=== PATIENT | male | born 1970 | race Caucasian/White ===

== ENCOUNTER 2020-05-28 10:27 | Outpatient (REF) | payer OTHER, SELFPAY ==
[2020-05-28 12:05] LABS: TSH reflex Free T4 0.92 uIU/mL (0.32-4.0)
[2020-05-28 12:07] LABS: Alanine Aminotransferase 56 U/L (0-40); Albumin Level 4.9 g/dL (3.5-5.0); Alkaline Phosphatase 75 U/L (39-117); Anion Gap 12 (12-20); Aspartate Amino Transferase 27 U/L (5-37); Bilirubin Total 0.8 mg/dL (0.0-1.0); Blood Urea Nitrogen 16 mg/dL (9-16); Calcium 9.1 mg/dL (8.4-10.2); Carbon Dioxide 25 mmol/L (22-29); Chloride 106 mmol/L (96-108); Cholesterol 148 mg/dL; Estimated Glomerular Filt Rate > 60; Glucose Fasting 112 mg/dL (60-99); HDL Cholesterol 35 mg/dL; LDL Cholesterol Calculated 86 mg/dl; Sodium 139 mmol/L (135-145); Total Protein 7.5 g/dL (6.5-8.0); Triglycerides 138 mg/dL
== END 2020-05-28 10:28 | disposition home or self-care (01) ==
LOC: HO.HMGCLDS 10:27
PROVIDERS: PCP Nurse Practitioner Family; Visit Provider Nurse Practitioner Family
DX: Z00.00 Encounter for general adult medical examination without abnormal findings (principal)
CPT/HCPCS: 36415; 80053; 80061; 84443

== ENCOUNTER 2020-05-31 12:14 | Outpatient (REF) | payer OTHER, SELFPAY ==
[2020-06-02 14:27] LABS: HCV Log PCR <1.18 NOT DETECTED Log IU/mL (NOT DETECTED); HepC Viral Load <15 NOT DETECTED IU/mL (NOT DETECTED)
[2020-06-03 03:49] LABS: Hepatitis B Core Antibody Nonreactive (Nonreactive); ~HepC Num1 14.45 S/CO (0.00-0.79); ~Hepatitis C Antibody Reactive (Nonreactive)
[2020-06-03 03:53] LABS: HBS Num1 1.46 mIU/mL (0-7.99); HBsAGNum1 0.61 S/CO (0.00-0.99); Hepatitis B Surface Antigen Negative (Negative); ~Hepatitis B Surface Antibody NONREACTIVE (Nonreactive)
[2020-06-05 08:19] LABS: Hepatitis A Antibody IgM 0.13 Index (0-0.79); ~Hepatitis A Antibody IgM Nonreactive (Nonreactive)
== END 2020-05-31 12:15 | disposition home or self-care (01) ==
LOC: HO.HMGCLDS 12:14
PROVIDERS: PCP Nurse Practitioner Family; Visit Provider Nurse Practitioner Family
DX: R74.8 Abnormal levels of other serum enzymes (principal)
CPT/HCPCS: 36415; 86704; 86706; 86709; 86803; 87340; 87522

== ENCOUNTER 2020-06-12 09:57 | Outpatient (REF) | payer OTHER, SELFPAY ==
--- NOTE | ~2020-06-12 | US_ITS ---
EXAMINATION: US ABDOMEN COMPLETE CLINICAL INFORMATION: Elevated LFT's. COMPARISON: Ultrasound abdomen 01/02/2014. TECHNIQUE: Real-time imaging of the abdominal viscera. FINDINGS: PANCREAS: Normal. ABDOMINAL AORTA: Difficult to penetrate INFERIOR VENA CAVA: Visualized portions are normal. LIVER: Liver is normal size, contour with diffuse increase echogenicity. There are areas of focal fatty sparing. No focal hepatic lesion. There is no intrahepatic biliary duct dilatation seen. GALLBLADDER: The gallbladder wall thickness measures 0.19 cm. The gallbladder is physiologically distended without evidence of stones, sludge, polyps, wall thickening or pericholecystic fluid. COMMON BILE DUCT: Normal in caliber measuring 0.34 cm in diameter. RIGHT KIDNEY: The right kidney is normal size, shape and echogenicity. No hydronephrosis. No renal calculi or focal parenchymal lesions. The kidney measures 12.1 cm in maximum dimension. LEFT KIDNEY: There is anechoic cyst upper pole measuring 3.8 3.5 x 3.4 cm. No hydronephrosis or renal calculi. The kidney measures 12.1 cm in maximum dimension. SPLEEN: Normal. The spleen measures 11.3 cm in maximum dimension. FREE FLUID: None. US/US abdomen complete IMPRESSION: There is increased hepatic echogenicity with focal fatty sparing. It is difficult to penetrate. There is anechoic cyst upper pole measuring 3.8 x 3.5 x 3.4 cm.
== END 2020-06-12 09:58 | disposition home or self-care (01) ==
LOC: HO.US 09:57
PROVIDERS: Visit Provider Nurse Practitioner Family
DX: R74.8 Abnormal levels of other serum enzymes (principal)
CPT/HCPCS: 76700

== ENCOUNTER → 2020-10-04 13:54 | Outpatient (BNVA) | payer OTHER, SELFPAY | PROVIDERS: PCP Nurse Practitioner Family; Visit Provider Urology | DX: N28.1 Cyst of kidney, acquired (principal) | CPT/HCPCS: 99202 ==

== ENCOUNTER 2021-05-29 10:01 | Outpatient (REF) | payer OTHER, SELFPAY ==
[2021-05-29 11:56] LABS: Alanine Aminotransferase 56 U/L (0-40); Albumin Level 4.6 g/dL (3.5-5.0); Alkaline Phosphatase 63 U/L (39-117); Anion Gap 11 (12-20); Aspartate Amino Transferase 32 U/L (5-37); Bilirubin Total 0.9 mg/dL (0.0-1.0); Blood Urea Nitrogen 12 mg/dL (9-16); Calcium 9.5 mg/dL (8.4-10.2); Carbon Dioxide 26 mmol/L (22-29); Chloride 105 mmol/L (96-108); Cholesterol 163 mg/dL; Estimated Glomerular Filt Rate > 60; Glucose Fasting 95 mg/dL (60-99); HDL Cholesterol 33 mg/dL; LDL Cholesterol Calculated 95 mg/dl; Potassium 4.2 mmol/L (3.3-5.1); Sodium 138 mmol/L (135-145); Total Protein 7.2 g/dL (6.5-8.0); Triglycerides 176 mg/dL
[2021-05-29 11:58] LABS: Appearance Urine CLEAR; Color Urine YELLOW; Glucose Urine UA NEG (NEG); Leukocyte Esterase Urine NEG (NEG); Nitrite Urine NEG (NEG); PH 7.5 (5.0-8.0); Specific Gravity - Urine 1.015 (1.005-1.025); Urine Blood NEG (NEG); Urine Ketones NEG (NEG); Urine Protein NEG (NEG-TRACE)
[2021-05-29 12:16] LABS: Prostate Specific Antigen Scr 0.26 ng/mL (<0.05-4.0); TSH reflex Free T4 0.87 uIU/mL (0.32-4.0)
== END 2021-05-29 10:02 | disposition home or self-care (01) ==
LOC: HO.HMGCLDS 10:01
PROVIDERS: PCP Nurse Practitioner Family; Visit Provider Nurse Practitioner Family
DX: Z00.00 Encounter for general adult medical examination without abnormal findings (principal); Z12.5 Encounter for screening for malignant neoplasm of prostate
CPT/HCPCS: 36415; 80053; 80061; 81003; 84153; 84443

== ENCOUNTER → 2021-08-05 11:46 | Outpatient (BNVA) | payer OTHER, SELFPAY | PROVIDERS: PCP Nurse Practitioner Family; Referring Provider Nurse Practitioner Family; Visit Provider Nurse Practitioner Family | DX: Z01.818 Encounter for other preprocedural examination (principal) | CPT/HCPCS: 99202 ==

== ENCOUNTER 2021-08-06 12:32 | Outpatient (REF) | payer OTHER, SELFPAY ==
--- NOTE | ~2021-08-06 | US_ITS ---
EXAMINATION: US THYROID CLINICAL INFORMATION: Nontoxic single thyroid nodule. COMPARISON: US thyroid 08/09/2017 and 05/21/2015. CT soft tissue neck with contrast 12/24/2015. TECHNIQUE: Linear transducer grayscale and color Doppler examination with attention to the region of the thyroid. FINDINGS: SIZE: Measurements of the thyroid lobes and nodules are given in sagittal, anteroposterior and transverse dimensions respectively. Right Thyroid Lobe: 4.4 x 1.6 x 2.0 cm, volume 7.8 mL. Previously 4.2 x 1.8 x 2.2 cm, volume 8.7 mL. Parenchyma: The gland echotexture is homogeneous. Thyroid vascularity is normal. Left Thyroid Lobe: 3.7 x 1.0 x 1.7 cm, volume 3.1 mL. Previously 4.0 x 1.4 x 1.7 cm, volume 5.0 mL. Parenchyma: The gland echotexture is homogeneous. Thyroid vascularity is normal. Isthmus: 0.3 cm in maximum AP dimension. Previously 0.3 cm. Estimated total number of nodules greater than or equal to 1 cm: 0. 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 Location: Left inferior. Size: 0.6 x 0.5 x 0.3 cm, volume 0.1 mL. Previously: 0.4 x 0.2 x 0.4 cm, volume 0.02 mL. Nodule characteristics: Composition: Mixed cystic and solid (1). Echogenicity: Hypoechoic (2). Shape: Not taller than wide (0). Margins: Smooth (0). Echogenic Foci: None (0). ACR TI-RADS total points: 3. ACR TI-RADS category: 3. Significant change in size (>/= 20% in 2 dimensions and minimal increase of 2 mm or 50% or greater increase in volume): None. Change in features: None. Change in ACR TI-RADS risk category: Not applicable. NODES: No lymphadenopathy is seen in the tissue surrounding the thyroid gland. US/US thyroid IMPRESSION: Enlarged thyroid gland with no major change in size. Solitary lower pole left thyroid nodule, stable. ACR TI-RADS RECOMMENDATION REFERENCE: Ultrasound-guided fine-needle aspiration, followup ultrasound, no further follow up. * TR1 (0 point) and TR 2 (2 points): No FNA or follow up * TR3 (3 points): FNA if more than or equal to 2.5 cm in maximum dimension, followup ultrasound in 1, 3 and 5 years if 1.5 to 2.4 cm in maximum dimension. * TR4 (4-6 points): FNA if more than or equal to 1.5 cm in maximum dimension, followup ultrasound in 1, 2, 3 and 5 years if 1 to 1.4 cm in maximum dimension. * TR5 (more than or equal to 7 points): FNA if more than or equal to 1 cm in maximum dimension, followup ultrasound every year for 5 years if 0.5 to 0.9 cm in maximum dimension. * TR3, TR4 or TR5 nodules that are below the size threshold for follow up receive no follow up.
== END 2021-08-06 12:33 | disposition home or self-care (01) ==
LOC: HO.US 12:32
PROVIDERS: Visit Provider Nurse Practitioner Family
DX: E04.1 Nontoxic single thyroid nodule (principal)
CPT/HCPCS: 76536

== ENCOUNTER 2021-11-17 15:50 | Outpatient (REF) | payer OTHER, SELFPAY ==
--- NOTE | ~2021-11-17 | US_ITS ---
EXAMINATION: US RETROPERITONEAL LIMITED (RENAL ONLY) CLINICAL INFORMATION: Cyst of kidney, acquired. COMPARISON: Ultrasound abdomen complete 06/12/2020 and 01/02/2014. TECHNIQUE: Real-time imaging of the kidneys. FINDINGS: RIGHT KIDNEY: 11.5 x 6.2 x 6.3 cm (SAG x AP x TRV). The kidney is normal in size, contour, and echogenicity. Renal cortical thickness is normal. No renal calculi or hydronephrosis. There is sn anechoic cyst in midpole laterally measuring 0.6 x 0.5 x 0.6 cm. It was visualized in 2013. LEFT KIDNEY: 12.7 x 6.4 x 5.8 cm (SAG x AP x TRV). The kidney is normal in size, contour, and echogenicity. Renal cortical thickness is normal. No hydronephrosis. There is sn anechoic cyst in the upper pole with septation measuring 4.2 x 4.0 x 4.4 cm. There is an echogenic stone lower pole without caliectasis measuring 0.3 x 0.2 x 0.3 cm. US/US renal BI IMPRESSION: Simple cyst right kidney and a complex cyst left kidney. Nonobstructive echogenic stone lower pole left kidney.
== END 2021-11-17 15:51 | disposition home or self-care (01) ==
LOC: HO.US 15:50
PROVIDERS: Absent Provider Urology; PCP Nurse Practitioner Family; Visit Provider Urology
DX: N28.1 Cyst of kidney, acquired (principal)
CPT/HCPCS: 76775

== ENCOUNTER 2021-11-27 09:42 | Outpatient (REF) | payer OTHER, SELFPAY ==
[2021-11-27 10:57] LABS: MANUAL DIFF FLAG NO
[2021-11-27 10:58] LABS: Appearance Urine Clear; Color Urine Yellow; Glucose Urine UA Negative (Negative); Leukocyte Esterase Urine Negative (Negative); Nitrite Urine Negative (Negative); Urine Blood Negative (Negative); Urine Ketones Negative (Negative); Urine Protein Negative (Neg-Trace)
[2021-11-27 11:15] LABS: Basophils Percent Auto 0.5 % (0-2); Eosinophils Absolute Auto 0.2 X10*3/uL (0.0-0.4); Hematocrit 44.6 % (42.0-52.0); Hemoglobin 14.7 g/dl (14.0-18.0); Imm Gran Abs Auto 0.03 X10*3/uL (0.00-0.03); Imm Gran Pct Auto 0.4 % (0.0-0.4); Lymphocytes Absolute Auto 2.2 X10*3/uL (1.2-4.9); Lymphocytes Percent Auto 26.7 % (20-40); Mean Corpuscular Hemoglobin 27.6 pg (27.0-33.0); Mean Corpuscular Volume 83.8 fL (80.0-98.0); Mean Platelet Volume 9.5 fL (9.4-12.4); Monocytes Absolute Auto 0.4 X10*3/uL (0.1-1.2); Monocytes Percent Auto 5.3 % (2-11); Neutrophils Absolute Auto 5.3 x10*3/uL (2.0-8.3); Neutrophils Percent Auto 65.1 % (45-73); Platelet Count 241 X10*3/uL (160-400); Red Blood Count 5.32 X10*6/uL (4.60-5.80); Red Cell Distribution Width 12.7 % (11.0-16.0); White Blood Count 8.1 X10*3/uL (4.8-10.8)
[2021-11-27 11:41] LABS: Alanine Aminotransferase 32 U/L (0-40); Albumin Level 4.6 g/dL (3.5-5.0); Alkaline Phosphatase 60 U/L (39-117); Anion Gap 14 (12-20); Aspartate Amino Transferase 23 U/L (5-37); Bilirubin Total 0.5 mg/dL (0.0-1.0); Blood Urea Nitrogen 11 mg/dL (9-16); Calcium 9.3 mg/dL (8.4-10.2); Carbon Dioxide 26 mmol/L (22-29); Chloride 104 mmol/L (96-108); Cholesterol 147 mg/dL; Estimated Glomerular Filt Rate > 60; Glucose Fasting 97 mg/dL (60-99); HDL Cholesterol 37 mg/dL; LDL Cholesterol Calculated 85 mg/dl; Potassium 4.4 mmol/L (3.3-5.1); Sodium 140 mmol/L (135-145); Triglycerides 128 mg/dL
[2021-11-27 12:04] LABS: TSH reflex Free T4 0.75 uIU/mL (0.32-4.0)
== END 2021-11-27 09:43 | disposition home or self-care (01) ==
LOC: HO.HMGCLDS 09:42
PROVIDERS: PCP Nurse Practitioner Family; Visit Provider Nurse Practitioner Family
DX: E78.5 Hyperlipidemia, unspecified (principal)
CPT/HCPCS: 36415; 80053; 80061; 81003; 84443; 85025

== ENCOUNTER 2021-12-09 08:56 | Day surgery (SDC) | payer OTHER, SELFPAY ==
[2021-12-03 14:03] VITALS: BMI 27.9
--- NOTE | 2021-12-08 10:39 | HO.ANESPROP2 ---
Documented by User: Keren Jeff NP 12/08/21 10:40 HPI - Anesthesia Eval Consult details Narrative: 51yo M for Colonoscopy PMFSH Active Problems Active Problems: All Active Problems (Updated 12/03/21 @ 14:05 by Yoana Mccabe RN) Physical exam (Acute) Elevated liver enzymes (Acute) Cyst of left kidney (Acute) Screening PSA (prostate specific antigen) (Acute) Thyroid nodule (Acute) Screening for colon cancer (Acute) Fatty liver (Acute) Back pain (Acute) Dyslipidemia (Acute) Past Medical History Medical History Anxiety Dyslipidemia Elevated cholesterol GERD (gastroesophageal reflux disease) Hepatitis C History of COVID-19 Left inguinal hernia Orchalgia Prediabetes Psoriasis Renal cyst Family History Family History Father Hypertension Substance use disorder Mother Diabetes Mental health disorder Brother Substance use disorder Sister Mental health disorder Surgical History Surgical History History of hydrocelectomy History of liver biopsy Hx of left inguinal hernia repair Social History Social History Housing: Apartment Alcohol intake: current Alcohol intake frequency: a few times a month Patient Tobacco Use Status: Former Tobacco user Quit Date: 2013 Tobacco use type: Cigarette e-Cigarette/Vaping Use: Never Used Second Hand Smoke Exposure: No Use of substances other than those prescribed or required for medical reasons: Yes Substance Use Type Other:: medical marijuana card Have you been hit, kicked, punched, or otherwise hurt by someone within the past year? If so, by whom?: No Are you DNR?: No Advance Directives: No (states would be his sister) Advance Directives Information Provided: Yes (brochure mailed) Advance Directives on File: No Recently lost weight without trying: No Eating poorly because of decreased appetite: No Nutrition Risks: No Nutritional Risk service: No Current occupational status: disabled Cognitive needs: No Hearing needs: No Vision needs: No Meds Allergies Allergy/AdvReac Type Severity Reaction Status Date / Time varenicline [From CHANTIX] Allergy Severe hallucinations Verified 12/03/21 13:50 - severe risperidone [From RISPERDAL] Allergy Intermediate HALLUCINATI Verified 12/03/21 13:50 ONS Home Medications Medication Instructions Recorded Confirmed Last Taken Type aspirin 81 mg tablet,delayed 81 mg PO DAILY 05/28/21 12/03/21 Unknown History release (Adult Aspirin Regimen) calcium carbonate 600 mg-vitamin 1 cap PO DAILY 05/28/21 12/03/21 Unknown History D3 12.5 mcg (500 unit) capsule (Calcium 600 with Vitamin D3) multivitamin (Daily Multi-Vitamin 1 tab PO DAILY 05/28/21 12/03/21 Unknown History tablet) omega-3 fatty acids 1,000 mg 1,000 mg PO DAILY 05/28/21 12/03/21 Unknown History capsule montelukast 10 mg tablet 10 mg PO BEDTIME 12/03/21 12/03/21 Unknown History Exam Exam Date and Time: December 08, 2021 1039 Height,Weight and Vital Signs: Height 5 ft 10 in Weight 88.451 kg Pertinent Lab Results Pertinent Lab Results: Laboratory Tests 11/27/21 11/27/21 09:49 09:49 WBC 8.1 Hgb 14.7 Hct 44.6 Plt Count 241 Sodium 140 Potassium 4.4 Chloride 104 Carbon Dioxide 26 BUN 11 Creatinine 0.88 Assessment and Plan Assessment Anesthesia Assessment: Chart Reviewed Documented by User: Larry Hillman MD 12/09/21 10:17 [facility] Past Medical History Medical History Anxiety Dyslipidemia Elevated cholesterol GERD (gastroesophageal reflux disease) Hepatitis C History of COVID-19 Left inguinal hernia Orchalgia Prediabetes Psoriasis Renal cyst Family History Family History Father Hypertension Substance use disorder Mother Diabetes Mental health disorder Brother Substance use disorder Sister Mental health disorder Family history of problems with anesthesia: No Surgical History Surgical History History of hydrocelectomy History of liver biopsy Hx of left inguinal hernia repair History of Problems with Anesthesia: No Social History Social History Housing: Apartment Alcohol intake: current Alcohol intake frequency: a few times a month Patient Tobacco Use Status: Former Tobacco user Quit Date: 2013 Tobacco use type: Cigarette e-Cigarette/Vaping Use: Never Used Second Hand Smoke Exposure: No Use of substances other than those prescribed or required for medical reasons: Yes Substance Use Type Other:: medical marijuana card Have you been hit, kicked, punched, or otherwise hurt by someone within the past year? If so, by whom?: No Are you DNR?: No Advance Directives: No (states would be his sister) Advance Directives Information Provided: Yes (brochure mailed) Advance Directives on File: No Recently lost weight without trying: No Eating poorly because of decreased appetite: No Nutrition Risks: No Nutritional Risk service: No Current occupational status: disabled Cognitive needs: No Hearing needs: No Vision needs: No Meds Allergies Allergy/AdvReac Type Severity Reaction Status Date / Time varenicline [From CHANTIX] Allergy Severe hallucinations Verified 12/03/21 13:50 - severe risperidone [From RISPERDAL] Allergy Intermediate HALLUCINATI Verified 12/03/21 13:50 ONS Home Medications Medication Instructions Recorded Confirmed Last Taken Type aspirin 81 mg tablet,delayed 81 mg PO DAILY 05/28/21 12/03/21 Unknown History release (Adult Aspirin Regimen) calcium carbonate 600 mg-vitamin 1 cap PO DAILY 05/28/21 12/03/21 Unknown History D3 12.5 mcg (500 unit) capsule (Calcium 600 with Vitamin D3) multivitamin (Daily Multi-Vitamin 1 tab PO DAILY 05/28/21 12/03/21 Unknown History tablet) omega-3 fatty acids 1,000 mg 1,000 mg PO DAILY 05/28/21 12/03/21 Unknown History capsule montelukast 10 mg tablet 10 mg PO BEDTIME 12/03/21 12/03/21 Unknown History Exam Airway Mallampati Class: II TM Dist: >3cm Neck ROM: Full Partial: Upper and Lower Heart: rrr Lungs: clear Assessment and Plan Final Anesthetic Review Family History of Problems with Anesthesia: No History of Problems with Anesthesia: No NPO: Yes ASA Class: II Final Preanesthetic Review: No Changes in Pt Med Stat, Meds/Allgs Chart Reviewed, Consent Obtained/Reviewed and Anes Risks/Benef Reviewed Patient Risk: Intermediate Procedure Risk: Low Anesthetic Plan Anesthetic Plan: MAC: Disposition: Standard PACU
--- NOTE | 2021-12-09 09:13 | MHC.SHP ---
Pre-Procedural Eval Section A Date of Service: 12/09/21 The patient is an INPATIENT: No The History & Physical has been completed within 30 days and I have reviewed it.: No Section B Chief Complaint: screening Details of Present Illness: Colon cancer screening Relevant Family History (Specify if Yes): Yes Relevant Social History: Tobacco Use (Former smoker) Present Medications: see Short Stay Collaborative assessment Medical History: Significant History (Dyslipidemia Hepatitis C Left inguinal hernia Orchalgia Psoriasis) History of Previous Operations: Relevant previous surgery/procedure and date(s) (History of liver biopsy, history of inguinal hernia repair) Allergies: Allergies Allergy/AdvReac Type Severity Reaction Status Date / Time varenicline [From CHANTIX] Allergy Severe hallucinations Verified 12/03/21 13:50 - severe risperidone [From RISPERDAL] Allergy Intermediate HALLUCINATI Verified 12/03/21 13:50 ONS Review of Systems Sugical H&P ROS: Negative: Constitution, Cardiovascular, Respiratory and Gastrointestinal Exam Surgical H&P Exam: Normal: Heart, Normal: Lungs, Normal: Extremities and Normal: Abdomen Plan Diagnosis/Plan: Unchanged I have reviewed the history and physical and performed a pertinent physical examination on my patient. No changes have occurred unless specified.
[2021-12-09 09:45] VITALS: BP 146/78; PULSE 72; RESP 15; TEMP 36.3; O2SAT 96
[2021-12-09] MEDS: Lactated Ringers 1,000 ML 100 ML IVCONT (09:47)
--- NOTE | 2021-12-09 10:10 | W.PM.OPN ---
Operative Note Operative Note Date of Service: 12/09/21 Narrative: Pre-op diagnosis: Colon cancer screening (1st colon), family history of colon cancer and polyps (cancer in a half sister and polyps in a brother in their 50's) Post-op diagnosis:?other (Colon polyps, diverticulosis, hemorrhoids) Procedure: COLONOSCOPY TILL CECUM WITH SNARE POLYPECTOMY AND SUBMUCOSAL INJECTION Consent: Indications for the procedure and potential complications of bleeding, perforation, reaction to medications and missed diagnosis were discussed with the patient and informed consent was obtained. Instrument: Olympus PCF H 190 L variable stiffness pediatric colonoscope Monitoring: Vital signs and clinical assessment, intermittent blood pressure monitoring, continuous EKG monitoring, Pulse oximetry and Carbon Dioxide monitoring were done throughout the procedure. Colon withdrawl time was 32 minutes. Procedure: The patient was placed in the left lateral decubitis position and pre-procedure medications were administered. After a digital rectal examination of the ano-rectum, the video colonoscope was inserted into the rectum and advanced through the colon to the cecum. The colonoscope was slowly withdrawn in a retrograde panoramic fashion and the colon mucosa was carefully examined including a retroflexed view of the rectum. Findings and interventions are described below. Procedure Difficulty: Without difficulty Findings: Terminal Ileum: Not evaluated Cecum:? A 1.8 to 2 cms flat polyp raised with 3 cc of nromal saline and removed with a hot snare Ascending Colon:? Normal Transverse Colon:? A 12-15 mm flat polyps at 70 cms - raised with 2 cc of normal saline and removed with a hot snare. Descending Colon:? Moderate diverticulosis Sigmoid Colon:? A 10 -12 mm sessile polyp removed with a hot snare. Moderate diverticulosis Rectum:? Normal Ano-rectum:? Moderate internal hemorrhoids Colon preparation:? Good? Impression and Post Procedure Diagnosis: Colonoscopy Findings: Three medium sized polyps removed Moderate diverticulosis seen in the left colon Moderate hemorrhoids on retroflexed exam. Plan: Await pathology results Patient has an appointment on 12/23/21 in the GI Clinic with ? Dorcas Edwards FNP-JESSICA. Repeat Colonoscopy interval based on path results - in 3-5 years if polyps are adenomatous and 10 years if polyps are hyperplastic. Above findings were reviewed with the patient and colon polyps and diverticulosis handouts were given in the discharge area Surgeon: Thiago Adams MD Anesthesia:?MAC Was an Office Support Assistant used for this Procedure?:?Yes Office Support Assistant:?Christine García Estimated blood loss (mL):?0 Pathology:?other (A. cecal polyp? B. transverse colon polyp @ 70 cm? C. sigmoid polyp) Condition:?stable Disposition:?PACU
[2021-12-09 11:13] VITALS: BP 110/72; PULSE 62; RESP 14; TEMP 37.3; O2SAT 97
[2021-12-09 11:28] VITALS: BP 116/73; PULSE 65; RESP 16; TEMP 37.1; O2SAT 98
[2021-12-09 11:43] VITALS: BP 115/74; PULSE 63; RESP 16; TEMP 36.1; O2SAT 98
== END 2021-12-09 12:26 | disposition home or self-care (01) ==
PROVIDERS: PCP Nurse Practitioner Family; Visit Provider Internal Medicine Gastroenterology
PROC: 0DJD8ZZ Inspection of Lower Intestinal Tract, Via Natural or Artificial Opening Endoscopic (ICD-10-PCS; CPT 45378; principal; 2021-12-09 10:00)
DX: Z12.11 Encounter for screening for malignant neoplasm of colon (principal); Z80.0 Family history of malignant neoplasm of digestive organs; Z83.71 Family history of colonic polyps; D12.0 Benign neoplasm of cecum; K63.5 Polyp of colon; K57.30 Diverticulosis of large intestine without perforation or abscess without bleeding; K64.8 Other hemorrhoids; K21.9 Gastro-esophageal reflux disease without esophagitis; E78.5 Hyperlipidemia, unspecified; Z86.19 Personal history of other infectious and parasitic diseases; L40.9 Psoriasis, unspecified; Z79.82 Long term (current) use of aspirin; Z79.899 Other long term (current) drug therapy; Z88.8 Allergy status to other drugs, medicaments and biological substances; Z87.891 Personal history of nicotine dependence; Z86.16 Personal history of COVID-19
CPT/HCPCS: 45385; 45381; 88305

== ENCOUNTER → 2021-12-23 10:31 | Outpatient (BNVA) | payer OTHER, SELFPAY | PROVIDERS: PCP Nurse Practitioner Family; Visit Provider Nurse Practitioner Family | DX: K57.90 Diverticulosis of intestine, part unspecified, without perforation or abscess without bleeding (principal); K63.5 Polyp of colon | CPT/HCPCS: 99212 ==

== ENCOUNTER 2022-05-25 10:46 | Outpatient (REF) | payer OTHER, SELFPAY ==
[2022-05-25 13:49] LABS: MANUAL DIFF FLAG NO
[2022-05-25 13:58] LABS: Basophils Percent Auto 0.5 % (0-2); Eosinophils Absolute Auto 0.2 X10*3/uL (0.0-0.4); Eosinophils Percent Auto 1.7 % (0-4); Hematocrit 44.6 % (42.0-52.0); Hemoglobin 15.2 g/dl (14.0-18.0); Imm Gran Abs Auto 0.03 X10*3/uL (0.00-0.03); Imm Gran Pct Auto 0.3 % (0.0-0.4); Lymphocytes Absolute Auto 2.9 X10*3/uL (1.2-4.9); Lymphocytes Percent Auto 32.3 % (20-40); Mean Corpuscular HGB Conc 34.1 g/dl (31.0-36.0); Mean Corpuscular Hemoglobin 28.8 pg (27.0-33.0); Mean Corpuscular Volume 84.5 fL (80.0-98.0); Monocytes Absolute Auto 0.6 X10*3/uL (0.1-1.2); Monocytes Percent Auto 6.9 % (2-11); Neutrophils Absolute Auto 5.1 x10*3/uL (2.0-8.3); Neutrophils Percent Auto 58.3 % (45-73); Platelet Count 282 X10*3/uL (160-400); Red Blood Count 5.28 X10*6/uL (4.60-5.80); Red Cell Distribution Width 12.5 % (11.0-16.0); White Blood Count 8.8 X10*3/uL (4.8-10.8)
[2022-05-25 14:00] LABS: Appearance Urine Clear; Color Urine Dark Yellow; Glucose Urine UA Negative (Negative); Leukocyte Esterase Urine Trace (Negative); Nitrite Urine Negative (Negative); Specific Gravity - Urine 1.025 (1.005-1.025); UMIC TRIGGER UACC YES; Urine Blood Negative (Negative); Urine Ketones Negative (Negative); Urine Protein Trace mg/dL (Neg-Trace)
[2022-05-25 14:05] LABS: Bacteria Urine None Seen (None Seen); Hyaline Casts Urine 0-2 /LPF (0-2); RBC Urine 0-2 /HPF (0-2); Squamous Epithelial Cell Urine 0-2 /HPF (0-2); WBC Urine 0-5 /HPF (0-5)
[2022-05-25 14:17] LABS: Alanine Aminotransferase 67 U/L (0-40); Albumin Level 4.7 g/dL (3.5-5.0); Alkaline Phosphatase 63 U/L (39-117); Anion Gap 11 (12-20); Aspartate Amino Transferase 36 U/L (5-37); Blood Urea Nitrogen 12 mg/dL (9-16); Calcium 9.7 mg/dL (8.4-10.2); Carbon Dioxide 27 mmol/L (22-29); Chloride 107 mmol/L (96-108); Cholesterol 172 mg/dL; Estimated Glomerular Filt Rate > 60; Glucose Fasting 104 mg/dL (60-99); HDL Cholesterol 35 mg/dL; LDL Cholesterol Calculated 113 mg/dl; Potassium 4.4 mmol/L (3.3-5.1); Sodium 141 mmol/L (135-145); Triglycerides 124 mg/dL
[2022-05-25 14:34] LABS: Prostate Specific Antigen Scr 0.26 ng/mL (<0.05-4.0); TSH reflex Free T4 0.98 uIU/mL (0.32-4.0)
== END 2022-05-25 10:47 | disposition home or self-care (01) ==
LOC: HO.HMGCLDS 10:46
PROVIDERS: PCP Nurse Practitioner Family; Visit Provider Nurse Practitioner Family
DX: E78.5 Hyperlipidemia, unspecified (principal); Z12.5 Encounter for screening for malignant neoplasm of prostate
CPT/HCPCS: 36415; 80053; 80061; 81001; 81003; 84153; 84443; 85025

== ENCOUNTER 2022-12-01 09:58 | Outpatient (REF) | payer OTHER, SELFPAY ==
[2022-12-01 13:40] LABS: MANUAL DIFF FLAG NO
[2022-12-01 13:43] LABS: Appearance Urine Clear; Color Urine Yellow; Glucose Urine UA Negative (Negative); Leukocyte Esterase Urine Negative (Negative); Nitrite Urine Negative (Negative); PH 7.5 (5.0-9.0); Urine Blood Negative (Negative); Urine Ketones Negative (Negative); Urine Protein Trace mg/dL (Neg-Trace)
[2022-12-01 13:54] LABS: Basophils Percent Auto 0.5 % (0-2); Eosinophils Absolute Auto 0.1 X10*3/uL (0.0-0.4); Eosinophils Percent Auto 1.8 % (0-4); Hematocrit 44.9 % (42.0-52.0); Imm Gran Abs Auto 0.04 X10*3/uL (0.00-0.03); Imm Gran Pct Auto 0.5 % (0.0-0.4); Lymphocytes Absolute Auto 2.1 X10*3/uL (1.2-4.9); Lymphocytes Percent Auto 27.1 % (20-40); Mean Corpuscular HGB Conc 33.4 g/dl (31.0-36.0); Mean Corpuscular Hemoglobin 28.4 pg (27.0-33.0); Mean Platelet Volume 9.8 fL (9.4-12.4); Monocytes Absolute Auto 0.5 X10*3/uL (0.1-1.2); Monocytes Percent Auto 6.4 % (2-11); Neutrophils Percent Auto 63.7 % (45-73); Platelet Count 255 X10*3/uL (160-400); Red Blood Count 5.28 X10*6/uL (4.60-5.80); Red Cell Distribution Width 12.4 % (11.0-16.0); White Blood Count 7.8 X10*3/uL (4.8-10.8)
[2022-12-01 14:44] LABS: TSH reflex Free T4 0.86 uIU/mL (0.32-4.0)
[2022-12-01 14:56] LABS: Anion Gap 13 (12-20)
[2022-12-01 15:01] LABS: Alanine Aminotransferase 48 U/L (0-40); Albumin Level 4.7 g/dL (3.5-5.0); Alkaline Phosphatase 64 U/L (39-117); Aspartate Amino Transferase 30 U/L (5-37); Bilirubin Total 0.7 mg/dL (0.0-1.0); Blood Urea Nitrogen 12 mg/dL (9-16); Calcium 9.6 mg/dL (8.4-10.2); Carbon Dioxide 23 mmol/L (22-29); Chloride 106 mmol/L (96-108); Cholesterol 157 mg/dL (<200); Estimated Glomerular Filt Rate > 60; Glucose Fasting 98 mg/dL (60-99); HDL Cholesterol 39 mg/dL (>40); LDL Cholesterol Calculated 93 mg/dL (<100); Potassium 4.1 mmol/L (3.3-5.1); Sodium 138 mmol/L (135-145); Total Protein 7.6 g/dL (6.5-8.0); Triglycerides 125 mg/dL (<150)
== END 2022-12-01 09:59 | disposition home or self-care (01) ==
LOC: HO.HMGCLDS 09:58
PROVIDERS: PCP Nurse Practitioner Family; Visit Provider Nurse Practitioner Family
DX: Z00.00 Encounter for general adult medical examination without abnormal findings (principal); Z20.2 Contact with and (suspected) exposure to infections with a predominantly sexual mode of transmission; E78.5 Hyperlipidemia, unspecified; E04.1 Nontoxic single thyroid nodule; Z13.29 Encounter for screening for other suspected endocrine disorder
CPT/HCPCS: 36415; 80053; 80061; 81003; 84443; 85025

== ENCOUNTER 2022-12-08 12:37 | Outpatient (AMB) | payer OTHER, SELFPAY ==
[2022-12-08 13:00] VITALS: BP 126/78; PULSE 88; TEMP 36.6; O2SAT 97; BMI 28.9
--- NOTE | 2022-12-08 13:00 | MHC.OFFWIV ---
Intake Vital Signs 12/08/22 13:00 Height 5 ft 10.5 in Weight 204 lb 4 oz BMI 28.9 BP 126/78 Blood Pressure Location Lt brachial Position Sitting Pulse 88 Pulse Source Pulse Oximeter Temp 97.8 F Temp Source Temporal Artery Scan Pulse Oximetry (%) 97 Intake Visit Reasons: EP, left lower leg pain/numbness Intake Note: pt is here for c/o left lower leg pain with numbness Patient Tobacco Use Status: Former Tobacco user Quit Date: 2013 Allergies varenicline [From CHANTIX] Allergy (Severe, Verified 12/08/22 13:01) hallucinations - severe risperidone [From RISPERDAL] Allergy (Intermediate, Verified 12/08/22 13:01) HALLUCINATIONS Do you need a note to return to daycare/school/sports/work: Yes HPI EP, left lower leg pain/numbness HPI Details 52-year-old male presents to the office for a sick visit. Patient is complaining of pain in the left leg with some tingling sensations. Symptoms present for the past few weeks. In addition he is complaining of a rash on his right arm and hand. He has history of psoriasis in the past. [facility] Medical History Anxiety Diverticulosis Dyslipidemia Elevated cholesterol GERD (gastroesophageal reflux disease) Hepatitis C History of COVID-19 Left inguinal hernia Orchalgia Prediabetes Psoriasis Renal cyst Serrated polyp of colon Surgical History History of hydrocelectomy History of liver biopsy Hx of colonoscopy Hx of left inguinal hernia repair Family History Father Hypertension Substance use disorder Mother Diabetes Mental health disorder Brother Substance use disorder Sister Mental health disorder Social History Housing: Apartment Alcohol intake: current Alcohol intake frequency: a few times a month Patient Tobacco Use Status: Former Tobacco user Quit Date: 2013 Tobacco use type: Cigarette e-Cigarette/Vaping Use: Never Used Second Hand Smoke Exposure: No service: No Current occupational status: disabled Cognitive needs: No Hearing needs: No Vision needs: No Physical Exam Vital Signs: Last Vital Signs Temp 97.8 F 12/08/22 13:00 Pulse 88 12/08/22 13:00 BP 126/78 12/08/22 13:00 Pulse Ox 97 12/08/22 13:00 BMI result Body Mass Index 28.9 Skin Other: Right hand: On the edges rough skin, mild eczematous changes at the base of the index finger. No vesicles or pustules seen. Extrem Other: Leg: Calf area: Varicose vein present, slightly tender. Assessment & Plan Assessment & Plan (1) Phlebitis: Code(s): I80.9 - Phlebitis and thrombophlebitis of unspecified site Plan: Anti-inflammatories for the pain prescribed. Keep leg elevated. (2) Rash: Code(s): R21 - Rash and other nonspecific skin eruption Plan: Steroid cream prescribed. Coding Level of Care Code Est Pt Level 3 (08526) Diagnoses Phlebitis I80.9 Rash R21
== END 2022-12-08 13:28 | disposition home or self-care (01) ==
PROVIDERS: PCP Nurse Practitioner Family; Visit Provider Internal Medicine
DX: I80.9 Phlebitis and thrombophlebitis of unspecified site (principal); R21 Rash and other nonspecific skin eruption
CPT/HCPCS: 99213

== ENCOUNTER 2023-01-22 14:11 | Outpatient (AMB) | payer OTHER, SELFPAY ==
--- NOTE | 2023-01-22 14:15 | A.OFFVIS_ITS ---
Intake Vital Signs 01/22/23 14:16 Height 5 ft 10.5 in Weight 204 lb 9.423 oz BMI 28.9 BP 84/69 L Blood Pressure Location Lt brachial Position Sitting Pulse 91 Pulse Source Pulse Oximeter Intake Visit Reasons: 1 Year follow up Diverticulosis Intake Note: Pt presents to the office today for a 1 year follow up for diverticuolsis. Pt states he is feeling okay but sometimes gets abdominal pain. Pt denies any N/V/D. Allergies varenicline [From CHANTIX] Allergy (Severe, Verified 01/22/23 14:19) hallucinations - severe risperidone [From RISPERDAL] Allergy (Intermediate, Verified 01/22/23 14:19) HALLUCINATIONS HPI 1 Year follow up Diverticulosis HPI Details LAST VISIT: Diverticulosis Moderate diverticulosis seen in left side of his colon. Patient will be giving MiraLax. He was encouraged to increase fiber in his diet. Serrated polyp of colon Sessile serrated polyp measuring around 2 cm found in cecum. Patient will need to return for colorectal screening in 3 years. Patient has also family history of colorectal cancer in patient's sister. That puts him automatically for 5 year colorectal screening. Given the size of the polyp and and the type he will need to return for colorectal screening in 3 years. I will see him in 1 year to re- evaluate. Patient was encouraged to call me sooner if he will have any GI concerning symptoms. Patient is agreeable to this plan and verbalizes understanding of instructions. He was given the opportunity to ask questions and all questions answered. TODAY'S VISIT Patient is here today for follow-up. Patient reports that he has been doing well since the last visit. Reports that he is moving his bowels well at without any issues. Patient also reports that he is eating lots of vegetables, high fiber diet implemented. Patient denies any melena, hematochezia, unintentional weight loss or ribbon like stools. Patient denies any dyspepsia, dysphagia or odynophagia. Patient admits to occasional left lower quadrant cramping. Patient reports that it happens rarely. Patient denies any other GI concerning symptoms. ? [facility] Medical History Anxiety Diverticulosis Dyslipidemia Elevated cholesterol GERD (gastroesophageal reflux disease) Hepatitis C History of COVID-19 Left inguinal hernia Orchalgia Prediabetes Psoriasis Renal cyst Serrated polyp of colon Surgical History History of hydrocelectomy History of liver biopsy Hx of colonoscopy Hx of left inguinal hernia repair Family History Father Hypertension Substance use disorder Mother Diabetes Mental health disorder Brother Substance use disorder Sister Mental health disorder Social History (Updated 01/22/23 @ 14:21 by Selena Martin MA) Housing: Apartment Alcohol intake: never Patient Tobacco Use Status: Former Tobacco user Quit Date: 2013 Tobacco use type: Cigarette e-Cigarette/Vaping Use: Never Used Second Hand Smoke Exposure: No Use of substances other than those prescribed or required for medical reasons: Yes Substance Use Type: Marijuana service: No Current occupational status: disabled Cognitive needs: No Hearing needs: No Vision needs: No Review of Systems Const Denies weight gain and Denies weight loss ENT Reports no additional complaints, Denies dysphagia and Denies odynophagia Card Reports no additional complaints Resp Reports no additional complaints GI Denies abdominal pain, Denies belching, Denies melena, Denies bloating, Denies change in bowel habits, Denies dysphagia, Denies excessive flatus, Denies dyspepsia, Denies heartburn, Denies diarrhea, Denies loose stools, Denies nausea, Denies odynophagia and Denies vomiting Reports no additional complaints Musc Reports no additional complaints Neuro Reports no additional complaints Psych Reports no additional complaints Endo Reports no additional complaints Physical Exam Vital Signs: Last Vital Signs Pulse 91 01/22/23 14:16 BP 84/69 L 01/22/23 14:16 BMI result Body Mass Index 28.9 Const General: healthy appearing, no acute distress and well developed Nutritional Appearance: obese Orientation/consciousness: patient oriented x3 HEENT Head: Yes normal to inspection, Yes normocephalic and Yes atraumatic Face and sinus: Yes normal facial exam Mouth: Normal oral and palatal mucosa present Throat: Yes posterior oropharynx normal, Yes tonsils normal and Yes uvula midline Eyes General: appearance normal, both eyes and all related structures Neck Neck: Yes normal visual inspection, Yes full ROM and Yes trachea midline Thyroid: Thyroid normal Resp Effort & Inspection: normal respiratory effort, able to speak in complete sentences, no tracheal deviation and symmetric chest movement Auscultation: clear to auscultation bilaterally Cardio Rate: regular rate GI Inspection: Yes normal to inspection, No distended and Yes obesity Palpation (GI): Soft to palpation, not firm, nontender and No hepatosplenomegaly present Auscultation: normal bowel sounds General: Yes no CVA tenderness Back/Spine/Pelvis Back: no CVA tenderness Skin General skin exam: elasticity normal, turgor normal and dry skin Neuro General: patient oriented x3 Psych Appearance: grossly normal Mental Status: mental status grossly normal Assessment & Plan Assessment & Plan (1) Serrated polyp of colon: Code(s): K63.5 - Polyp of colon (2) Diverticulosis: Code(s): K57.90 - Diverticulosis of intestine, part unspecified, without perforation or abscess without bleeding Plan For high-fiber diet discussed with patient. Patient can take stool softeners. Diagnosed with diverticulosis of sigmoid colon, experiencing left lower quadrant pain when constipated. Patient was also encouraged to increase fluid intake and activity to promote better bowel motility. Patient can take [id number] probiotic. List of food high in fiber given to patient. Patient will return to our office on as needed basis. He is agreeable to this plan and verbalizes understanding of instructions. He was given the opportunity to ask questions and all questions answered. Thank you for allowing me to participate in his care Medications: New docusate sodium 100 mg PO BEDTIME 90 caps 3RF K59.00 - Constipation, unspecified Coding Level of Care Code Est Pt Level 3 (75481) Diagnoses Serrated polyp of colon K63.5 Diverticulosis K57.90 Time Spent (min) 25 Comment 15 minutes spent with patient and additional 10 minutes spent reviewing his records
[2023-01-22 14:16] VITALS: BP 84/69; PULSE 91; BMI 28.9
== END 2023-01-22 15:14 | disposition home or self-care (01) ==
PROVIDERS: PCP Nurse Practitioner Family; Visit Provider Nurse Practitioner Family
DX: K63.5 Polyp of colon (principal); K57.90 Diverticulosis of intestine, part unspecified, without perforation or abscess without bleeding
CPT/HCPCS: 99213

== ENCOUNTER → 2023-01-22 14:11 | Outpatient (BNVA) | payer OTHER, SELFPAY | PROVIDERS: PCP Nurse Practitioner Family; Visit Provider Nurse Practitioner Family | DX: K63.5 Polyp of colon (principal); K57.90 Diverticulosis of intestine, part unspecified, without perforation or abscess without bleeding | CPT/HCPCS: 99212 ==

== ENCOUNTER 2023-04-20 14:48 | Outpatient (AMB) | payer OTHER, SELFPAY ==
[2023-04-20 14:54] VITALS: BP 110/70; PULSE 72; O2SAT 98; BMI 28.9
--- NOTE | 2023-04-20 14:54 | A.OFFPC_ITS ---
Vital Signs 04/20/23 14:54 Height 5 ft 10.5 in Weight 204 lb BMI 28.9 BP 110/70 Blood Pressure Location Lt brachial Position Sitting Pulse 72 Pulse Source Pulse Oximeter Pulse Oximetry (%) 98 Oxygen Delivery Method Room Air Intake Visit Reasons: PE Intake Note: Pt is here for annual exam Cook Manager Required: No Accompanied by: Self / Same As Patient Allergies varenicline [From CHANTIX] Allergy (Severe, Verified 04/20/23 17:24) hallucinations - severe risperidone [From RISPERDAL] Allergy (Intermediate, Verified 04/20/23 17:24) HALLUCINATIONS Medication List - Last Reconciled 04/20/23 by LESLIE Almendarez aspirin (Adult Aspirin Regimen) 81 mg PO DAILY atorvastatin 10 mg PO DAILY calcium carbonate-vitamin D3 600 mg-12.5 mcg (500 unit) (Calcium 600 with V itamin D3) 1 cap PO DAILY cetirizine 20 mg (2 x 10 mg) PO DAILY 90 days diclofenac sodium 75 mg PO BID PRN docusate sodium 100 mg PO BEDTIME hydrocortisone 2.5% 1 appl topical BID PRN montelukast 10 mg PO BEDTIME 30 days multivitamin (Daily Multi-Vitamin tablet) 1 tab PO DAILY omega-3 fatty acids 1,000 mg PO DAILY pantoprazole 40 mg PO DAILY polyethylene glycol 3350 (Miralax) 17 grams PO DAILY Tobacco use date assessed: 04/20/23 Dental Screening Dental Screen Date: 04/20/23 Did you have a dental visit in the last 12 months?: Yes Did you have a dental problem in the last 6 months where you did not have access to dental care?: No Was dental information given to patient?: Patient has dentist HPI PE HPI Details Pt is here for a PE. Will order labs. Colon screen is up to date. Due for PSA in the near future, will order. Denies dribbling with urination, weak stream, and frequent nocturia. [facility] Medical History Serrated polyp of colon Diverticulosis Prediabetes Renal cyst History of COVID-19 Anxiety Elevated cholesterol GERD (gastroesophageal reflux disease) Orchalgia Left inguinal hernia Dyslipidemia Psoriasis Hepatitis C Surgical History Hx of colonoscopy Hx of left inguinal hernia repair History of hydrocelectomy History of liver biopsy Family History Father Hypertension Substance use disorder Mother Diabetes Mental health disorder Brother Substance use disorder Sister Mental health disorder Social History Housing: Apartment Alcohol intake: never Patient Tobacco Use Status: Former Tobacco user Quit Date: 2013 Tobacco use type: Cigarette e-Cigarette/Vaping Use: Never Used Second Hand Smoke Exposure: No Substance Use Type: Marijuana service: No Current occupational status: disabled Cognitive needs: No Hearing needs: No Vision needs: No Questionnaire PHQ-9 Over the last 2 weeks, how often have you been bothered by any of the following problems? 1. Little interest or pleasure in doing things: not at all 2. Feeling down, depressed, or hopeless: not at all 3. Trouble falling or staying asleep, or sleeping too much: more than half the days 4. Feeling tired or having little energy: not at all 5. Poor appetite or overeating: not at all 6. Feeling bad about yourself - or that you are a failure or have let yourself or your family down: not at all 7. Trouble concentrating on things, such as reading the newspaper or watching television: not at all 8. Moving or speaking so slowly that other people could have noticed. Or the opposite - being so fidgety or restless that you have been moving around a lot more than usual: not at all 9. Thoughts that you would be better off or of hurting yourself in some way: not at all Total score: 2 Depression Screening Interpretation: Negative Depression Screening Done: Yes 71209 - PHQ-9 Billing: Yes Source: Developed by Drs. Randall Nolen, Chacha Wright, Sabas Covarrubias and colleagues, with an educational esther from [email or web address]. Thrive Questionnaire Date Thrive assessed: 05/25/22 I am a: Patient What is your living situation today?: I have a steady place to live Within the past 12 months, did the food you bought not last and you didn't have the money to get more?: Sometimes True Within the past 12 months, did you worry whether your food would run out before you got money to buy more?: Sometimes True Do you have trouble paying for medicines?: No Do you have trouble getting transportation to medical appointments?: No Do you have trouble paying your heating and electricity bill?: No Do you have trouble taking care of your child, family member or friend?: No Do you have trouble with day-to-day activities such as bathing, preparing meals, shopping, managing finances, etc.?: No Are you currently unemployed and looking for a job?: No Are you interested in more education?: No Please select the resources that you would like help with: None Currently or been in a relationship where the following occur: no concerns reported THRIVE Score: 2 AUDIT C Alcohol Use Questionnaire (AUDIT-C) 1. How often do you have a drink containing alcohol?: Never 2. How many drinks containing alcohol do you have on a typical day when you are drinking?: 1 or 2 3. How often do you have six or more drinks on one occasion?: Never Total Score: 0 Score Reviewed/Action Taken: Yes LEXIE-7 AMB Questionnaire LEXIE-7 Date LEXIE - 7 assessed: 04/20/23 Feeling nervous, anxious, or on edge: 2 = More than half the days Not being able to stop or control worryin = Not at all Worrying too much about different things: 0 = Not at all Trouble relaxin = More than half the days Being so restless that it is hard to sit still: 1 = Several days Becoming easily annoyed or irritable: 1 = Several days Feeling afraid as if something awful might happen: 0 = Not at all Total LEXIE-7 score (0-4 normal; 5-9 mild; 10-14 moderate; 15-21 severe): 6 Source: Developed by Drs. Randall Nolen, Chacha Wright, Sabas Covarrubias and colleagues, with an educational esther from [email or web address]. LEXIE-7 Assessment Billing LEXIE-7 Assessment Tool: LEXIE-7 Assessment 98999 Review of Systems Const Denies chills and Denies fever(s) Eyes Denies blurry vision ENT Denies vertigo, Denies dizziness and Denies sore throat Card Denies chest pain at rest, Denies chest pain with activity, Denies diaphoresis, Denies dyspnea and Denies dyspnea on exertion Resp Denies cough, Denies dyspnea, Denies dyspnea on exertion and Denies wheezing GI Denies abdominal pain, Denies melena, Denies hematochezia, Denies constipation, Denies diarrhea and Denies loose stools Denies hematuria Musc Denies numbness and Denies tingling Skin/Breast Denies lesions Neuro Denies vertigo, Denies dizziness, Denies numbness and Denies tingling Psych Denies anxiety, Denies depression, Denies homicidal ideation, Denies suicidal ideation and Denies other (substance abuse) Aller/Immun Denies wheezing Physical exam (Primary Care) Vital Signs: Last Vital Signs Pulse 72 04/20/23 14:54 BP 110/70 04/20/23 14:54 Pulse Ox 98 04/20/23 14:54 Oxygen Delivery Method Room Air 04/20/23 14:54 BMI result Body Mass Index 28.9 Tobacco/Smoking Status: Tobacco use Status Tobacco use date assessed 04/20/23 04/20/23 14:55 Patient Tobacco Use Status Former Tobacco user 04/20/23 14:55 Tobacco use type Cigarette 04/20/23 14:55 e-Cigarette/Vaping Use Never Used 04/20/23 14:55 PHQ-9: PHQ-9 Score PHQ-9: Total score 2 04/20/23 15:14 Depression Screening Interpretation: Negative Thrive Assessment: Date of Thrive Assessment Date Thrive assessed 05/25/22 04/20/23 14:55 Currently or been in a relationship where the following occur: no concerns reported Const General: cooperative Nutritional Appearance: well nourished Orientation/consciousness: patient oriented x3 HENMT Head: Yes normal to inspection, Yes normocephalic and Yes atraumatic Ears: TM's normal bilaterally Eyes General: appearance normal, both eyes and all related structures Alignment and Position: alignment normal and position normal Neck Neck: Yes normal visual inspection and Yes no lymphadenopathy Thyroid: Thyroid normal Resp Effort & Inspection: normal respiratory effort Auscultation: clear to auscultation bilaterally Cardio Rate: regular rate Rhythm: regular rhythm Heart sounds: S1 normal heart sound present, S2 normal heart sound present and no murmurs GI Palpation (GI): Soft to palpation and nontender Auscultation: normal bowel sounds Male General Exam: Yes normal external exam Penis: normal penis Scrotum: scrotum normal, testes descended bilaterally and no inguinal hernias Testes: no testicular mass Skin Other: faint macular/silvery, dry appearing dermatitis to elbows Neuro General: patient oriented x3, moves all extremities, no focal motor deficits and deep tendon reflexes 2+ bilaterally Romberg Test: Negative Psych Appearance: grossly normal Mental Status: mental status grossly normal Speech and movement: Normal speech and movement present Affect: normal affect Attitude: cooperative Thought process: Normal thought process present Thought content: Normal thought content present Insight: Good insight present (Psych) Judgement: Good judgement present (Psych) Assessment and Plan Assessment & Plan (1) Physical exam: Code(s): Z00.00 - Encounter for general adult medical examination without abnormal findings Plan: Labs ordered (2) Dermatitis: Code(s): L30.9 - Dermatitis, unspecified Plan: Referred to derm (3) Screening PSA (prostate specific antigen): Code(s): Z12.5 - Encounter for screening for malignant neoplasm of prostate Plan: PSA ordered Plan The patient agreed to the use of a medical scientific liaison for this encounter. Scribed for RICHY Kirk-BC by Racquel Bae medical scientific liaison, on 04/20/2023 at 15:15 EST. Orders: Orders Comprehensive [place]. Panel Fast Today Z00.00 - Encounter for general adult medical examination without abnormal findings TSH reflex Free T4 Today Z00.00 - Encounter for general adult medical examination without abnormal findings Prostate Specific Antigen Scr Today Z12.5 - Encounter for screening for malignant neoplasm of prostate Complete Blood Count Auto Diff Today Z00.00 - Encounter for general adult medical examination without abnormal findings UA CC w/rflx Micro + Cult Today Z00.00 - Encounter for general adult medical examination without abnormal findings Lipid Panel Today Z00.00 - Encounter for general adult medical examination without abnormal findings Referrals Dermatology Referral L30.9 - Dermatitis, unspecified Medications: Refilled hydrocortisone 2.5% 1 appl topical BID PRN 20 grams 0RF skin irritation Coding Level of Care Code Est Pt Prev Care 40-64y(71775) Diagnoses Physical exam Z00.00 Dermatitis L30.9 Screening PSA (prostate specific antigen) Z12.5 Additional Codes LEXIE-7 Assessment Billing - LEXIE-7 Assessment Tool: LEXIE-7 Assessment 99961 ([id number])
== END 2023-04-20 15:28 | disposition home or self-care (01) ==
PROVIDERS: PCP Nurse Practitioner Family; Visit Provider Nurse Practitioner Family
DX: Z00.00 Encounter for general adult medical examination without abnormal findings (principal); L30.9 Dermatitis, unspecified; Z12.5 Encounter for screening for malignant neoplasm of prostate
CPT/HCPCS: 99396

== ENCOUNTER 2023-04-29 12:03 | Outpatient (REF) | payer OTHER, SELFPAY ==
[2023-04-29 13:22] LABS: MANUAL DIFF FLAG NO
[2023-04-29 13:26] LABS: Appearance Urine Clear; Color Urine Yellow; Glucose Urine UA Negative (Negative); Leukocyte Esterase Urine Negative (Negative); Nitrite Urine Negative (Negative); PH 6.5 (5.0-9.0); Specific Gravity - Urine 1.025 (1.005-1.025); Urine Blood Negative (Negative); Urine Ketones Negative (Negative); Urine Protein Trace mg/dL (Neg-Trace)
[2023-04-29 13:37] LABS: Basophils Percent Auto 0.2 % (0-2); Eosinophils Absolute Auto 0.1 X10*3/uL (0.0-0.4); Eosinophils Percent Auto 1.1 % (0-4); Hematocrit 43.2 % (42.0-52.0); Hemoglobin 14.6 g/dl (14.0-18.0); Imm Gran Abs Auto 0.09 X10*3/uL (0.00-0.03); Imm Gran Pct Auto 0.7 % (0.0-0.4); Lymphocytes Absolute Auto 2.4 X10*3/uL (1.2-4.9); Lymphocytes Percent Auto 19.6 % (20-40); Mean Corpuscular HGB Conc 33.8 g/dl (31.0-36.0); Mean Corpuscular Hemoglobin 27.9 pg (27.0-33.0); Mean Corpuscular Volume 82.6 fL (80.0-98.0); Mean Platelet Volume 9.1 fL (9.4-12.4); Monocytes Absolute Auto 0.8 X10*3/uL (0.1-1.2); Monocytes Percent Auto 6.7 % (2-11); Neutrophils Absolute Auto 8.9 x10*3/uL (2.0-8.3); Neutrophils Percent Auto 71.7 % (45-73); Platelet Count 327 X10*3/uL (160-400); Red Blood Count 5.23 X10*6/uL (4.60-5.80); Red Cell Distribution Width 12.6 % (11.0-16.0); White Blood Count 12.4 X10*3/uL (4.8-10.8)
[2023-04-29 13:51] LABS: Alanine Aminotransferase 49 U/L (0-40); Albumin Level 4.5 g/dL (3.5-5.0); Alkaline Phosphatase 65 U/L (39-117); Anion Gap 13 (12-20); Aspartate Amino Transferase 29 U/L (5-37); Bilirubin Total 0.5 mg/dL (0.0-1.0); Blood Urea Nitrogen 12 mg/dL (9-16); Calcium 9.2 mg/dL (8.4-10.2); Carbon Dioxide 25 mmol/L (22-29); Chloride 105 mmol/L (96-108); Cholesterol 151 mg/dL (<200); Estimated Glomerular Filt Rate > 60; Glucose Fasting 101 mg/dL (60-99); HDL Cholesterol 31 mg/dL (>40); LDL Cholesterol Calculated 87 mg/dL (<100); Potassium 3.9 mmol/L (3.3-5.1); Sodium 139 mmol/L (135-145); Total Protein 7.4 g/dL (6.5-8.0); Triglycerides 165 mg/dL (<150)
[2023-04-29 14:07] LABS: Prostate Specific Antigen Scr 0.31 ng/mL (<0.05-4.0)
[2023-04-29 14:09] LABS: TSH reflex Free T4 0.89 uIU/mL (0.32-4.0)
== END 2023-04-29 12:04 | disposition home or self-care (01) ==
LOC: HO.HMGCLDS 12:03
PROVIDERS: PCP Nurse Practitioner Family; Visit Provider Nurse Practitioner Family
DX: Z00.00 Encounter for general adult medical examination without abnormal findings (principal); Z12.5 Encounter for screening for malignant neoplasm of prostate; Z13.6 Encounter for screening for cardiovascular disorders
CPT/HCPCS: 36415; 80053; 80061; 81003; 84153; 84443; 85025

== ENCOUNTER 2023-10-21 14:01 | Outpatient (AMB) | payer OTHER, SELFPAY ==
[2023-10-21 14:12] VITALS: BP 118/78; PULSE 78; O2SAT 95; BMI 30.4
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
== END 2023-10-21 14:43 | disposition home or self-care (01) ==
PROVIDERS: PCP Nurse Practitioner Family; Visit Provider Nurse Practitioner Family
DX: E78.5 Hyperlipidemia, unspecified (principal); E55.9 Vitamin D deficiency, unspecified
CPT/HCPCS: 99213

== ENCOUNTER 2023-11-04 08:48 | Outpatient (REF) | payer OTHER, SELFPAY ==
[2023-11-04 10:10] LABS: MANUAL DIFF FLAG NO
[2023-11-04 10:24] LABS: Appearance Urine Clear; Color Urine Yellow; Glucose Urine UA Negative (Negative); Leukocyte Esterase Urine Negative (Negative); Nitrite Urine Negative (Negative); Specific Gravity - Urine 1.025 (1.005-1.025); Urine Blood Negative (Negative); Urine Ketones Negative (Negative); Urine Protein Trace mg/dL (Neg-Trace)
[2023-11-04 10:26] LABS: Basophils Absolute Auto 0.1 X10*3/uL (0.0-0.2); Basophils Percent Auto 0.6 % (0-2); Eosinophils Absolute Auto 0.2 X10*3/uL (0.0-0.4); Eosinophils Percent Auto 1.8 % (0-4); Hematocrit 45.3 % (42.0-52.0); Hemoglobin 15.5 g/dl (14.0-18.0); Imm Gran Abs Auto 0.04 X10*3/uL (0.00-0.03); Imm Gran Pct Auto 0.5 % (0.0-0.4); Lymphocytes Absolute Auto 2.1 X10*3/uL (1.2-4.9); Lymphocytes Percent Auto 23.8 % (20-40); Mean Corpuscular HGB Conc 34.2 g/dl (31.0-36.0); Mean Corpuscular Hemoglobin 28.3 pg (27.0-33.0); Mean Corpuscular Volume 82.8 fL (80.0-98.0); Mean Platelet Volume 9.5 fL (9.4-12.4); Monocytes Absolute Auto 0.5 X10*3/uL (0.1-1.2); Monocytes Percent Auto 5.7 % (2-11); Neutrophils Absolute Auto 5.9 x10*3/uL (2.0-8.3); Neutrophils Percent Auto 67.6 % (45-73); Platelet Count 269 X10*3/uL (160-400); Red Blood Count 5.47 X10*6/uL (4.60-5.80); Red Cell Distribution Width 12.4 % (11.0-16.0); White Blood Count 8.7 X10*3/uL (4.8-10.8)
[2023-11-04 10:56] LABS: Alanine Aminotransferase 57 U/L (0-40); Albumin Level 4.8 g/dL (3.5-5.0); Alkaline Phosphatase 61 U/L (39-117); Anion Gap 10 (12-20); Aspartate Amino Transferase 31 U/L (5-37); Bilirubin Total 0.5 mg/dL (0.0-1.0); Blood Urea Nitrogen 13 mg/dL (9-16); Calcium 9.5 mg/dL (8.4-10.2); Carbon Dioxide 25 mmol/L (22-29); Chloride 109 mmol/L (96-108); Cholesterol 164 mg/dL (<200); Estimated Glomerular Filt Rate > 60; Glucose Fasting 125 mg/dL (60-99); HDL Cholesterol 34 mg/dL (>40); LDL Cholesterol Calculated 92 mg/dL (<100); Potassium 4.4 mmol/L (3.3-5.1); Sodium 140 mmol/L (135-145); TSH reflex Free T4 1.14 uIU/mL (0.32-4.0); Total Protein 7.7 g/dL (6.5-8.0); Triglycerides 190 mg/dL (<150); Vitamin D 25-OH Total 56.4 ng/mL (>30)
== END 2023-11-04 08:49 | disposition home or self-care (01) ==
LOC: HO.HMGCLDS 08:48
PROVIDERS: PCP Nurse Practitioner Family; Visit Provider Nurse Practitioner Family
DX: E78.5 Hyperlipidemia, unspecified (principal); E55.9 Vitamin D deficiency, unspecified
CPT/HCPCS: 36415; 80053; 80061; 81003; 82306; 84443; 85025

== ENCOUNTER 2023-11-18 08:43 | Outpatient (REF) | payer OTHER, SELFPAY ==
--- NOTE | ~2023-11-18 | US_ITS ---
EXAMINATION: US ABDOMEN COMPLETE CLINICAL INFORMATION: Abnormal levels of other serum enzymes. Elevated liver enzymes. COMPARISON: Renal ultrasound 11/17/2021. Ultrasound abdomen complete 06/12/2020. TECHNIQUE: Real-time imaging of the abdominal viscera. Technically difficult study secondary to bowel gas and body habitus. FINDINGS: PANCREAS: Normal. ABDOMINAL AORTA and IVC: Not well visualized obscured mostly by bowel gas. LIVER: Liver is enlarged right lobe measuring 21 cm. Increased echogenicity of the liver parenchyma, this can be seen in the setting of hepatic steatosis or liver parenchymal disease. No focal hepatic lesion. There is no intrahepatic biliary duct dilatation seen. GALLBLADDER: Normal. The gallbladder is physiologically distended without evidence of stones, sludge, polyps, wall thickening or pericholecystic fluid. COMMON BILE DUCT: Normal in caliber measuring 0.4 cm in diameter. RIGHT KIDNEY: No hydronephrosis or renal calculi. The kidney measures 12.0 cm in maximum dimension. Cyst middle Pole 6 x 7 x 5 mm. LEFT KIDNEY: No hydronephrosis or renal calculi. The kidney measures 11.9 cm in maximum dimension. Cyst in the upper pole 4.8 x 4.5 x 4.3 cm and middle Pole 4 x 4 by 4 mm. These are commonly benign, no follow-up imaging is indicated. SPLEEN: The spleen measures 13.0 cm in maximum dimension. Borderline enlarged. FREE FLUID: None. US/US abdomen complete IMPRESSION: * Hepatosplenomegaly. * Increased echogenicity of the liver parenchyma, this can be seen in the setting of hepatic steatosis or liver parenchymal disease. No focal liver lesion found. * Bilateral simple renal cysts, commonly benign, no follow-up imaging is indicated. Electronically signed by: Brittany Kumar MD 12/30/2023 07:59 AM EST
[2023-11-18 11:02] LABS: HBS Num1 0.97 mIU/mL (0-7.99); HBc Num1 0.07 S/CO (0.00-0.79); HBsAGNum1 1.49 S/CO (0.00-0.99); Hepatitis A Antibody IgM 0.25 Index (0-0.79); Hepatitis B Core Antibody Nonreactive (Nonreactive); ~HepC Num1 14.76 S/CO (0.00-0.79); ~Hepatitis A Antibody IgM Nonreactive (Nonreactive); ~Hepatitis B Surface Antibody NONREACTIVE (Nonreactive); ~Hepatitis C Antibody Reactive (Nonreactive)
[2023-11-18 11:59] LABS: HBsAGNum2 Reactive; HBsAGNum3 Reactive; Hepatitis B Surface Antigen Retest CNFM (Negative)
[2023-11-24 12:53] LABS: HBsAG NON-REACTIVE
== END 2023-11-18 08:44 | disposition home or self-care (01) ==
LOC: HO.HMGCX 08:43
PROVIDERS: PCP Nurse Practitioner Family; Visit Provider Nurse Practitioner Family
DX: R74.8 Abnormal levels of other serum enzymes (principal)
CPT/HCPCS: 36415; 76700; 86704; 86706; 86709; 86803; 87340

== ENCOUNTER 2023-11-19 14:19 | Outpatient (REF) | payer OTHER, SELFPAY ==
[2023-11-20 15:10] LABS: HCV Log PCR <1.18 NOT DETECTED Log IU/mL (NOT DETECTED); HepC Viral Load <15 NOT DETECTED IU/mL (NOT DETECTED)
== END 2023-11-19 14:20 | disposition home or self-care (01) ==
LOC: HO.HMGCLDS 14:19
PROVIDERS: PCP Nurse Practitioner Family; Visit Provider Nurse Practitioner Family
DX: B19.20 Unspecified viral hepatitis C without hepatic coma (principal)
CPT/HCPCS: 36415; 87522

== ENCOUNTER 2023-12-14 12:48 | Outpatient (REF) | payer OTHER, SELFPAY | END 2023-12-14 12:49 | disposition home or self-care (01) | LOC: HO.HMGCX 12:48 | PROVIDERS: PCP Nurse Practitioner Family; Visit Provider Urology | DX: N28.1 Cyst of kidney, acquired (principal) | CPT/HCPCS: 76857 ==

== ENCOUNTER 2024-05-18 10:23 | Outpatient (REF) | payer OTHER, SELFPAY ==
[2024-05-18 13:21] LABS: Appearance Urine Clear; Color Urine Yellow; Glucose Urine UA Negative (Negative); Leukocyte Esterase Urine Negative (Negative); Nitrite Urine Negative (Negative); PH 6.5 (5.0-9.0); Specific Gravity - Urine 1.025 (1.005-1.025); Urine Blood Negative (Negative); Urine Ketones Negative (Negative); Urine Protein Trace mg/dL (Neg-Trace)
[2024-05-18 13:22] LABS: MANUAL DIFF FLAG NO
[2024-05-18 13:43] LABS: Basophils Absolute Auto 0.1 X10*3/uL (0.0-0.2); Basophils Percent Auto 0.5 % (0-2); Eosinophils Absolute Auto 0.1 X10*3/uL (0.0-0.4); Eosinophils Percent Auto 1.5 % (0-4); Hematocrit 44.9 % (42.0-52.0); Imm Gran Abs Auto 0.03 X10*3/uL (0.00-0.03); Imm Gran Pct Auto 0.3 % (0.0-0.4); Lymphocytes Absolute Auto 2.4 X10*3/uL (1.2-4.9); Lymphocytes Percent Auto 25.7 % (20-40); Mean Corpuscular HGB Conc 33.4 g/dl (31.0-36.0); Mean Corpuscular Hemoglobin 27.7 pg (27.0-33.0); Mean Platelet Volume 9.9 fL (9.4-12.4); Monocytes Absolute Auto 0.6 X10*3/uL (0.1-1.2); Monocytes Percent Auto 5.8 % (2-11); Neutrophils Absolute Auto 6.3 x10*3/uL (2.0-8.3); Neutrophils Percent Auto 66.2 % (45-73); Platelet Count 271 X10*3/uL (160-400); Red Blood Count 5.41 X10*6/uL (4.60-5.80); White Blood Count 9.5 X10*3/uL (4.8-10.8)
[2024-05-18 14:11] LABS: Albumin Level 4.8 g/dL (3.5-5.0); Alkaline Phosphatase 63 U/L (39-117); Anion Gap 13 (12-20); Aspartate Amino Transferase 39 U/L (5-37); Bilirubin Total 0.5 mg/dL (0.0-1.0); Blood Urea Nitrogen 14 mg/dL (9-16); Calcium 9.6 mg/dL (8.4-10.2); Carbon Dioxide 24 mmol/L (22-29); Chloride 108 mmol/L (96-108); Cholesterol 187 mg/dL (<200); Estimated Glomerular Filt Rate > 60; Glucose Fasting 108 mg/dL (60-99); HDL Cholesterol 37 mg/dL (>40); LDL Cholesterol Calculated 112 mg/dL (<100); Sodium 141 mmol/L (135-145); Total Protein 7.4 g/dL (6.5-8.0); Triglycerides 190 mg/dL (<150)
[2024-05-18 14:34] LABS: Alanine Aminotransferase 61 U/L (0-40); TSH reflex Free T4 1.03 uIU/mL (0.32-4.0); Vitamin D 25-OH Total 88.7 ng/mL (>30)
== END 2024-05-18 10:24 | disposition home or self-care (01) ==
LOC: HO.HMGCLDS 10:23
PROVIDERS: PCP Nurse Practitioner Family; Visit Provider Nurse Practitioner Family
DX: Z12.5 Encounter for screening for malignant neoplasm of prostate (principal); E78.5 Hyperlipidemia, unspecified; E55.9 Vitamin D deficiency, unspecified
CPT/HCPCS: 36415; 80053; 80061; 81003; 82306; 84153; 84443; 85025

== ENCOUNTER 2024-05-23 15:19 | Outpatient (AMB) | payer OTHER, SELFPAY ==
[2024-05-23 15:21] VITALS: BP 122/78; PULSE 76; O2SAT 98; BMI 30.4
--- NOTE | 2024-05-23 15:21 | A.OFFPC_ITS ---
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 Accompanied by: Self / Same As Patient Allergies varenicline [From CHANTIX] Allergy (Severe, Verified 05/23/24 15:22) hallucinations - severe risperidone [From RISPERDAL] Allergy (Intermediate, Verified 05/23/24 15:22) HALLUCINATIONS Medication List - Last Reconciled 05/23/24 by Lew Thibodeaux [facility]- aspirin (Adult Aspirin Regimen) 81 mg PO DAILY atorvastatin 10 mg PO DAILY calcium carbonate-vitamin D3 600 mg-12.5 mcg (500 unit) (Calcium with Vit D3) 1 cap PO DAILY cetirizine 20 mg (2 x 10 mg) PO DAILY 90 days diclofenac sodium 75 mg PO BID PRN docusate sodium 100 mg PO BEDTIME fluticasone propionate 50 mcg/actuation (Allergy Relief (fluticasone)) 2 sprays intranasal DAILY hydrocortisone 2.5% 1 appl topical BID PRN montelukast 10 mg PO BEDTIME multivitamin (Daily Multi-Vitamin tablet) 1 tab PO DAILY omega-3 fatty acids 1,000 mg PO DAILY pantoprazole 40 mg PO DAILY polyethylene glycol 3350 (Miralax) 17 grams PO DAILY Tobacco use date assessed: 05/23/24 Dental Screening Dental Screen Date: 05/23/24 Did you have a dental visit in the last 12 months?: Yes Did you have a dental problem in the last 6 months where you did not have access to dental care?: No Was dental information given to patient?: Patient has dentist HPI PE(needs to select pcp on insurance) HPI Details History of Present Illness The patient is a 53-year-old male presenting for a physical examination. He does not express any acute symptoms during the visit such as chest pain or gastrointestinal issues but has been noted to have a history of elevated liver enzymes, a resolved history of Hepatitis C, and fatty liver disease. Recent labs continue to show elevated liver enzymes, and the patient is conscious of these issues. Lifestyle factors include no cigarette smoking history but frequent marijuana use. The patient acknowledges dietary lapses, indicating a desire to improve his diet and commence regular gym attendance. The patient is due for a routine colonoscopy screening in nov, and arrangements for the referral are underway. Health Maintenance - Colonoscopy screening due in November - Discussed improvement in diet and init iation of regular gym attendance Social History - Frequent marijuana use; denies cigaret te smoking - Reports poor dietary habits recently a nd plans to improve diet and exercise routine Review of Systems - Gastrointestinal: Denies abdominal jelani n, blood in stool, constipation, and diarrhea - Respiratory: Denies shortness of breat h, chest pain -denies any fevers, chills, N/V, urinary issues, si or hi Physical Exam General: Cooperative, healthy appearing, comfortable, no acute distress and well developed Orientation: Patient oriented x3 Limitations: No limitations Head: Normal to inspection Ears: Hearing grossly normal bilaterally Nose: Normal external nose present Face and sinus: Normal facial exam Eyes: Appearance normal, both eyes and all related structures Neck: Normal visual inspection and Yes full ROM Respiratory: Normal respiratory effort and able to speak in complete sentences. Lungs were fairly clear to auscultation bilaterally Cardiovascular: Regular rate and rhythm. Normal S1 and S2 GI: Normal to inspection. Soft to palpation and nontender Skin: No rashes or lesions noted Neuro: Patient oriented x3 Extremities: Normal to inspection Results - Labs: Elevated liver enzymes noted in recent tests Plan The patient is scheduled for a colonoscopy screening in November, and I will ensure he receives a referral for this procedure. The result of elevated liver enzymes necessitates further attention, and I advised lifestyle modifications, specifically in diet and exercise, to enhance liver health. The patient's motivation to initiate such changes was supported, and I provided counseling on the negative implications of marijuana use on liver function. Monitoring of the patient's liver enzymes will be continued with possible future evaluations. Discussion Notes I informed the patient about the necessity and timing of his upcoming colonoscopy. We discussed the challenges and significance of elevated liver enzymes and emphasized the role of lifestyle changes in managing them. I articulated the positive impact of diet and exercise on liver health and acknowledged his commitment to adopting these improvements. The patient understood the importance of lifestyle changes in disease management and agreed to the proposed plan. Follow-up was discussed, focusing on monitoring his liver condition through regular laboratory tests. Patient Instructions - Follow up with the referral process fo r colonoscopy screening to be completed in November. - Start a balanced diet and regular exer cise routine to help manage liver health. - Report any new symptoms or changes to your health promptly. [facility] Medical History Serrated polyp of colon Diverticulosis Prediabetes Renal cyst History of COVID-19 Anxiety Elevated cholesterol GERD (gastroesophageal reflux disease) Orchalgia Left inguinal hernia Dyslipidemia Psoriasis Hepatitis C Surgical History Hx of colonoscopy Hx of left inguinal hernia repair History of hydrocelectomy History of liver biopsy Family History Father Hypertension Substance use disorder Mother Diabetes Mental health disorder Brother Substance use disorder Sister Mental health disorder Social History Housing: Apartment Alcohol intake: never Patient Tobacco Use Status: Former Tobacco user Tobacco use type: Cigarette e-Cigarette/Vaping Use: Never Used Second Hand Smoke Exposure: No Substance Use Type: Marijuana service: No Current occupational status: disabled Cognitive needs: No Hearing needs: No Vision needs: No Questionnaire PHQ-9 Over the last 2 weeks, how often have you been bothered by any of the following problems? 1. Little interest or pleasure in doing things: not at all 2. Feeling down, depressed, or hopeless: not at all 3. Trouble falling or staying asleep, or sleeping too much: several days 4. Feeling tired or having little energy: not at all 5. Poor appetite or overeating: several days 6. Feeling bad about yourself - or that you are a failure or have let yourself or your family down: not at all 7. Trouble concentrating on things, such as reading the newspaper or watching television: not at all 8. Moving or speaking so slowly that other people could have noticed. Or the opposite - being so fidgety or restless that you have been moving around a lot more than usual: not at all 9. Thoughts that you would be better off or of hurting yourself in some way: not at all Total score: 2 Depression Screening Interpretation: Negative Depression Screening Done: Yes 33902 - PHQ-9 Billing: Yes Source: Developed by Drs. Randall Nolen, Chacha Wright, Sabas Covarrubias and colleagues, with an educational esther from [employer]. Thrive Questionnaire Date Thrive assessed: 05/23/24 I am a: Patient What is your living situation today?: I have a steady place to live Within the past 12 months, did the food you bought not last and you didn't have the money to get more?: Sometimes True Within the past 12 months, did you worry whether your food would run out before you got money to buy more?: Sometimes True Do you have trouble paying for medicines?: No Do you have trouble getting transportation to medical appointments?: No Do you have trouble paying your heating and electricity bill?: Yes Do you have trouble taking care of your child, family member or friend?: I choose not to answer this question Do you have trouble with day-to-day activities such as bathing, preparing meals, shopping, managing finances, etc.?: Yes Are you currently unemployed and looking for a job?: No Are you interested in more education?: No Please select the resources that you would like help with: None THRIVE Score: 3 AUDIT C Alcohol Use Questionnaire (AUDIT-C) 1. How often do you have a drink containing alcohol?: Monthly or less 2. How many drinks containing alcohol do you have on a typical day when you are drinking?: 1 or 2 3. How often do you have six or more drinks on one occasion?: Never Total Score: 1 Score Reviewed/Action Taken: Yes LEXIE-7 AMB Questionnaire LEXIE-7 Date LEXIE - 7 assessed: 05/23/24 Feeling nervous, anxious, or on edge: 3 = Nearly every day Not being able to stop or control worryin = Several days Worrying too much about different things: 1 = Several days Trouble relaxin = More than half the days Being so restless that it is hard to sit still: 1 = Several days Becoming easily annoyed or irritable: 1 = Several days Feeling afraid as if something awful might happen: 1 = Several days Total LEXIE-7 score (0-4 normal; 5-9 mild; 10-14 moderate; 15-21 severe): 10 Source: Developed by Chacha Groves, Sbaas Covarrubias and colleagues, with an educational esther from [employer]. LEXIE-7 Assessment Billing LEXIE-7 Assessment Tool: LEXIE-7 Assessment 10857 (has a therapist, denies any si or hi) Physical exam (Primary Care) Vital Signs: Last Vital Signs Pulse 76 05/23/24 15:21 BP 122/78 05/23/24 15:21 Pulse Ox 98 05/23/24 15:21 Oxygen Delivery Method Room Air 05/23/24 15:21 BMI result Body Mass Index 30.4 Tobacco/Smoking Status: Tobacco use Status Tobacco use date assessed 05/23/24 05/23/24 15:23 Patient Tobacco Use Status Former Tobacco user 05/23/24 15:23 Tobacco use type Cigarette 05/23/24 15:23 e-Cigarette/Vaping Use Never Used 05/23/24 15:23 PHQ-9: PHQ-9 Score PHQ-9: Total score 2 05/23/24 15:37 Depression Screening Interpretation: Negative Thrive Assessment: Date of Thrive Assessment Date Thrive assessed 05/23/24 05/23/24 15:23 Coding Level of Care Code Est Pt Prev Care 40-64y(42053) Diagnoses Elevated liver enzymes R74.8 Physical exam Z00.00 Screening for colon cancer Z12.11 Additional Codes PHQ-9 - 14542 - PHQ-9 Billing: Yes ([id number]) LEXIE-7 Assessment Billing - LEXIE-7 Assessment Tool: LEXIE-7 Assessment 42376 ([id number]) Assessment & Plan Assessment & Plan (1) Elevated liver enzymes: Code(s): R74.8 - Abnormal levels of other serum enzymes Category: Medical (2) Physical exam: Code(s): Z00.00 - Encounter for general adult medical examination without abnormal findings Category: Medical (3) Screening for colon cancer: Code(s): Z12.11 - Encounter for screening for malignant neoplasm of colon Category: Medical Plan . Orders: Orders Comprehensive Met. Panel 2 Months R74.8 - Abnormal levels of other serum enzymes Referrals Gastroenterology Referral Z12.11 - Encounter for screening for malignant neoplasm of colon
== END 2024-05-23 16:23 | disposition home or self-care (01) ==
LOC: HO.HMCC 15:19
PROVIDERS: PCP Nurse Practitioner Family; Visit Provider Nurse Practitioner Family
DX: R74.8 Abnormal levels of other serum enzymes (principal); Z00.00 Encounter for general adult medical examination without abnormal findings; Z12.11 Encounter for screening for malignant neoplasm of colon

== ENCOUNTER → 2024-05-23 15:19 | Outpatient (BNVA) | payer OTHER, SELFPAY | PROVIDERS: PCP Nurse Practitioner Family; Visit Provider Nurse Practitioner Family | DX: Z00.00 Encounter for general adult medical examination without abnormal findings (principal); R74.8 Abnormal levels of other serum enzymes | CPT/HCPCS: 96127; 99396 ==

== ENCOUNTER 2024-06-28 08:03 | Outpatient (REF) | payer OTHER, SELFPAY ==
--- NOTE | ~2024-06-28 | US_ITS ---
EXAMINATION: US ABDOMEN LIMITED WITH LIVER ELASTOGRAPHY HISTORY: K76.9 - Liver disease, unspecified TECHNIQUE: Real-time grayscale ultrasound imaging of the right upper quadrant was performed and images were reviewed. COMPARISON: Comparison is made with the prior examination dated 11/18/2023. FINDINGS: Liver: The right lobe of the liver measures 19.8 cm in size. The left lobe of the liver measures 10.7 cm in size. The liver demonstrates increased echotexture, consistent with steatosis. No focal mass or intrahepatic biliary ductal dilatation is identified. There is normal hepatopedal flow in the portal vein. Ultrasound elastography of the liver was performed with 10 separate measurements of the liver parenchyma with the patient in the supine position. Measurements were obtained approximately 2 cm below Rizwan's capsule and perpendicular to the capsule. Images are of satisfactory quality. The median shear wave velocity is 1.31 m/s. The interquartile range/median (IQR/median) is 0.14. Gallbladder and biliary tree: The gallbladder is unremarkable, without evidence of calculi, wall thickening, or pericholecystic fluid. There is no sonographic Mcbride sign. The common bile duct is normal in caliber measuring 4 mm. Right Kidney: The right kidney measures 10.7 cm in length and demonstrates an interpolar cyst measuring 9 x 7 x 7 mm. The right kidney is otherwise unremarkable, without evidence of solid masses, hydronephrosis, or calculi. Pancreas: The pancreas is obscured by bowel gas. Abdominal aorta and inferior vena cava: The visualized portions of the abdominal aorta and inferior vena cava are normal in caliber. There is no free fluid in the right upper quadrant. US/US abdomen summers w elastography IMPRESSION: Hepatomegaly and hepatic steatosis. The median shear wave velocity in the liver is 1.31 m/s, corresponding to a median liver stiffness of 5.2 kPa. The IQR/median value is 0.14. This is indicative of a quality data set. Findings are indicative of a low elastography value which rules out advanced chronic liver disease in asymptomatic patients. REFERENCE: Society of Radiologists in Ultrasound Liver Stiffness Thresholds (2020): LIVER STIFFNESS THRESHOLDS: *Shear wave velocity less than 1.3 m/s (Liver Stiffness equal or less than 5 kPa): High probability of being normal. *Shear wave velocity less than 1.7 m/s (Liver Stiffness less than 9 kPa): In the absence of other known clinical signs, rules out compensated advanced chronic liver disease. *Shear wave velocity between 1.7-2.1 m/s (Liver Stiffness 9-13 kPa): Suggestive of compensated advanced chronic liver disease but need further test for confirmation. *Shear wave velocity between 2.1-2.4 m/s (Liver Stiffness 13-17 kPa): Rules in compensated advanced chronic liver disease. *Shear wave velocity greater than 2.4 m/s (Liver Stiffness over 17 kPa): Suggestive of clinically significant portal hypertension. QUALITY OF DATA SET: *IQR/Median value equal or less than 0.30 implies a quality data set. *IQR/Median value over 0.30 implies a poor quality data set. SIGNIFICANT CHANGE FROM PRIOR EXAM: Significant change if liver stiffness measurement is 10% or greater from prior exam. OTHER CONSIDERATIONS: The stage of liver fibrosis may be overestimated in the setting of acute hepatitis, liver inflammation, elevated liver function tests, hepatic vascular congestion, obstructive cholestasis, non-fasting state, and infiltrative diseases such as amyloidosis and lymphoma. In some patients with NAFLD, the liver stiffness thresholds for compensated advanced chronic liver disease may be lower. In causes other than viral hepatitis and NAFLD, liver stiffness thresholds are not well established. Electronically signed by: Randall Roberson MD 06/28/2024 09:25 AM EDT
== END 2024-06-28 08:04 | disposition home or self-care (01) ==
LOC: HO.US 08:03
PROVIDERS: PCP Nurse Practitioner Family; Visit Provider Nurse Practitioner Family
DX: K76.9 Liver disease, unspecified (principal)
CPT/HCPCS: 76705; 76981

== ENCOUNTER → 2024-06-28 08:05 | Outpatient (BNV) | payer OTHER, SELFPAY | PROVIDERS: PCP Nurse Practitioner Family; Visit Provider Radiology Diagnostic Radiology | DX: R16.0 Hepatomegaly, not elsewhere classified (principal) | CPT/HCPCS: 76705; 76981 ==

== ENCOUNTER → 2024-08-25 13:53 | Outpatient (AMB) | payer OTHER, SELFPAY ==
--- NOTE | 2024-08-25 14:00 | MHC.OFFVIS ---
Vital Signs 08/25/24 14:02 Height 5 ft 10.5 in Weight 212 lb BMI 30.0 BP 106/89 Blood Pressure Location Lt brachial Position Sitting Pulse 91 Intake Visit Reasons: [place] screening. [facility] with [facility] 2022. Intake Note: Matty presents in the office as a colo screen. CC: States he is due because sister had colon cancer. [employer] Required: No Allergies varenicline (From CHANTIX) Allergy (Severe, Verified 08/25/24 14:03) hallucinations - severe risperidone (From RISPERDAL) Allergy (Intermediate, Verified 08/25/24 14:03) HALLUCINATIONS HPI HPI [place] screening. [facility] with [facility]ch[facility] 2022.: Details: LAST VISIT: Serrated polyp of colon Diverticulosis Plan For high-fiber diet discussed with patient. Patient can take stool softeners. Diagnosed with diverticulosis of sigmoid colon, experiencing left lower quadrant pain when constipated. Patient was also encouraged to increase fluid intake and activity to promote better bowel motility. Patient can take [id number] probiotic. List of food high in fiber given to patient. Patient will return to our office on as needed basis. He is agreeable to this plan and verbalizes understanding of instructions. He was given the opportunity to ask questions and all questions answered. ? Thank you for allowing me to participate in his care New docusate sodium 100 mg PO BEDTIME 90 caps 3RF K59.00 TODAY'S VISIT Patient is here today for follow-up and to discuss going for colonoscopy. Patient is due to go for colonoscopy patient's sister was diagnosed with colon cancer. Patient denies any cardiac or respiratory symptoms. Denies any melena, hematochezia, unintentional weight loss or ribbon like stools. Patient has been on pantoprazole for quite sometimes. For the most part his symptoms are suppressed. Denies dyspepsia, dysphagia or odynophagia. No issues with anesthesia in the past. No history of sleep apnea. Patient is on low-dose aspirin. Last colonoscopy in November of 2021 recommendation for 3 year screening. Patient reports that he is moving his bowels better. Trying to change his diet. Eating more vegetables. Trying to lose weight and exercise. PFSH Medical History Serrated polyp of colon Diverticulosis Prediabetes Renal cyst History of COVID-19 Anxiety Elevated cholesterol GERD (gastroesophageal reflux disease) Orchalgia Left inguinal hernia Dyslipidemia Psoriasis Hepatitis C Surgical History Hx of colonoscopy Hx of left inguinal hernia repair History of hydrocelectomy History of liver biopsy Family History Father Hypertension Substance use disorder Mother Diabetes Mental health disorder Brother Substance use disorder Sister Mental health disorder Social History Housing: Apartment Alcohol intake: never Patient Tobacco Use Status: Former Tobacco user Tobacco use type: Cigarette e-Cigarette/Vaping Use: Never Used Second Hand Smoke Exposure: No Substance Use Type: Marijuana service: No Current occupational status: disabled Cognitive needs: No Hearing needs: No Vision needs: No Review of Systems Const Denies weight gain and Denies weight loss ENT Reports no additional complaints, Denies dysphagia and Denies odynophagia Card Reports no additional complaints Resp Reports no additional complaints GI Denies abdominal pain, Denies belching, Denies melena, Denies bloating, Denies change in bowel habits, Denies dysphagia, Denies excessive flatus, Denies dyspepsia, Denies heartburn, Denies diarrhea, Denies loose stools, Denies nausea, Denies odynophagia and Denies vomiting Reports no additional complaints Musc Reports no additional complaints Neuro Reports no additional complaints Psych Reports no additional complaints Endo Reports no additional complaints Physical Exam Vital Signs: Last Vital Signs Pulse 91 08/25/24 14:02 BP 106/89 08/25/24 14:02 BMI result Body Mass Index 30.0 Const General: healthy appearing, no acute distress and well developed Nutritional Appearance: obese Orientation/consciousness: patient oriented x3 Resp Effort & Inspection: normal respiratory effort, able to speak in complete sentences, no tracheal deviation and symmetric chest movement Auscultation: clear to auscultation bilaterally Cardio Rate: regular rate GI Inspection: Yes normal to inspection, No distended and Yes obesity Palpation (GI): Soft to palpation, not firm, nontender and No hepatosplenomegaly present Auscultation: normal bowel sounds General: Yes no CVA tenderness Back/Spine/Pelvis Back: no CVA tenderness Skin General skin exam: elasticity normal, turgor normal and dry skin Neuro General: patient oriented x3 Psych Appearance: grossly normal Mental Status: mental status grossly normal Assessment & Plan Assessment & Plan (1) Hepatitis C: Code(s): B19.20 - Unspecified viral hepatitis C without hepatic coma Category: Medical Qualifiers: Hepatic coma status: without hepatic coma Viral hepatitis chronicity: chronic Qualified Code(s): B18.2 - Chronic viral hepatitis C (2) Elevated liver enzymes: Code(s): R74.8 - Abnormal levels of other serum enzymes Category: Medical (3) Screening for colon cancer: Code(s): Z12.11 - Encounter for screening for malignant neoplasm of colon Category: Medical (4) Diverticulosis: Code(s): K57.90 - Diverticulosis of intestine, part unspecified, without perforation or abscess without bleeding Category: Medical (5) Fatty liver: Code(s): K76.0 - Fatty (change of) liver, not elsewhere classified Category: Medical Plan Patient denies any cardiac or respiratory symptoms. Symptoms of acid reflux are suppressed for the most part with pantoprazole. Depending on what he eats he might have occasional symptoms. Patient will be sent for upper endoscopy. Avoid dietary triggers and late night snacking. Staying upright for minimum 3 hours after meals discussed with patient. What to expect before during and after procedure discussed with patient. Stressed the importance of good bowel prep and clear liquid diet day before procedure. I will see him after the procedure, sooner on as needed basis. He is agreeable to this plan and verbalizes understanding of instructions. He was given the opportunity to ask questions and all questions answered. Thank you for allowing me to participate in his care Medications: New polyethylene glycol 3350 (Miralax) As directed by gastroenterology department at [facility] 238 grams PO ONCE 238 grams 0RF Z12.11 - Encounter for screening for malignant neoplasm of colon bisacodyl (Dulcolax (bisacodyl)) take 4 tabs at noon the day before your colonoscopy 20 mg (4 x 5 mg) PO ONCE 4 tabs 0RF constipation 1 day Z12.11 - Encounter for screening for malignant neoplasm of colon Coding Level of Care Code Est Pt Level 3 (14425) Diagnoses Chronic hepatitis C without hepatic coma B18.2 Hepatic coma status: without hepatic coma Viral hepatitis chronicity: chronic Elevated liver enzymes R74.8 Screening for colon cancer Z12.11 Diverticulosis K57.90 Fatty liver K76.0 Time Spent (min) 35 Comment 25 minutes spent with patient and additional 10 minutes spent reviewing his records
[2024-08-25 14:02] VITALS: BP 106/89; PULSE 91
== END ==
LOC: HO.HGI 13:54
PROVIDERS: PCP Nurse Practitioner Family; Visit Provider Nurse Practitioner Family
DX: B18.2 Chronic viral hepatitis C (principal); R74.8 Abnormal levels of other serum enzymes; Z12.11 Encounter for screening for malignant neoplasm of colon; K57.90 Diverticulosis of intestine, part unspecified, without perforation or abscess without bleeding; K76.0 Fatty (change of) liver, not elsewhere classified
CPT/HCPCS: 99024

== ENCOUNTER → 2024-08-25 13:53 | Outpatient (BNVA) | payer OTHER, SELFPAY | PROVIDERS: PCP Nurse Practitioner Family; Visit Provider Nurse Practitioner Family | DX: Z12.11 Encounter for screening for malignant neoplasm of colon (principal); B18.2 Chronic viral hepatitis C; R74.8 Abnormal levels of other serum enzymes; K57.90 Diverticulosis of intestine, part unspecified, without perforation or abscess without bleeding; K76.0 Fatty (change of) liver, not elsewhere classified | CPT/HCPCS: 99212 ==

== ENCOUNTER 2024-12-05 15:02 | Outpatient (REF) | payer OTHER, SELFPAY ==
[2024-12-05 17:09] LABS: Alanine Aminotransferase 32 U/L (0-40); Albumin Level 4.8 g/dL (3.5-5.0); Alkaline Phosphatase 67 U/L (39-117); Anion Gap 10 (12-20); Aspartate Amino Transferase 22 U/L (5-37); Blood Urea Nitrogen 13 mg/dL (9-16); Calcium 9.5 mg/dL (8.4-10.2); Carbon Dioxide 26 mmol/L (22-29); Chloride 110 mmol/L (96-108); Estimated Glomerular Filt Rate > 60; Potassium 3.9 mmol/L (3.3-5.1); Sodium 142 mmol/L (135-145); Total Protein 7.2 g/dL (6.5-8.0)
--- OUTSIDE RECORDS SUMMARY | 2024-12-05 20:16 | XMS_ITS | Clinical Summary ---
Author Organization [facility] Address [address] [place] [id number] Phone Care Team Providers Care Soft Water Mechanic Name Role Phone Lew Thibodeaux NP Primary Care Provider + Allergies No known active allergies Social History Tobacco Use Types Packs/Day Years Used Date Smoking Tobacco: Never Assessed Education Answer Date Recorded Are you interested in more education? Not on wayne e 06/13/2022 Are you concerned about learning? Not on file 06/13/2022 No 06/13/2022 No 06/13/2022 Digital Access Answer Date Recorded No 2022 No 2022 No 2022 Reliable internet access at home? Not on file 2022 Device with a working camera? Not on file Sex and Gender Information Value Date Recorded Sex Assigned at Not on file Legal Sex Male 6:00 PM EDT Gender Identity Not on file Sexual Orientation Not on file Last Filed Vital Signs Vital Sign Reading Time Taken Comments Blood Pressure 107/69 10/10/2021 6:14 PM EDT Pulse 88 10/10/2021 6:14 PM EDT Temperature 36.5 C (97.7 F) 10/10/2021 6:14 PM EDT Respiratory Rate 20 10/10/2021 6:14 PM EDT Oxygen Saturation 98% 10/10/2021 6:14 PM EDT Inhaled Oxygen Concentration - - Weight 81.6 kg (180 lb) 10/10/2021 6:14 PM EDT Height 177.8 cm (5' 10 ) 10/10/2021 6:14 PM EDT Body Mass Index 25.83 10/10/2021 6:14 PM EDT Plan of Treatment Health Maintenance Due Date Last Done Comments Adult Td,Tdap Booster 1971 LIPID PANEL 1971 DEPRESSION SCREENING 1983 SMOKING Hx and SMOKELESS TOB ACCO SCREENING 07/11/1984 HEPATITIS C SCREENING 07/11/1989 HIV ONE-TIME SCREENING (18-6 5 YEARS) 07/11/1989 COLOGUARD 07/11/2016 COLONOSCOPY 07/11/2016 COLORECTAL CANCER SCREENING 07/11/2016 FIT TEST 07/11/2016 FOBT 07/11/2016 SIGMOIDOSCOPY 07/11/2016 VIRTUAL COLONOSCOPY 07/11/2016 PNEUMOCOCCAL VACCINES (50+ y ears) (1 of 1 - PCV) 07/11/2021 ZOSTER VACCINES (1 of 2) 07/11/2021 INFLUENZA VACCINE (#1) 2024 COVID-19 VACCINE (1 - 2024-2 6 season) 2024 RSV VACCINE (1 - 1-dose 75+ series) 07/11/2046 HEPATITIS A VACCINES Aged Out No long er eligible based on patient's age to complete this topic HIB VACCINES Aged Out No longer eligi ble based on patient's age to complete this topic MENINGOCOCCAL VACCINES (ACWY) Aged Out No longer eligible based on patient's age to complete this topic MENINGOCOCCAL VACCINES (B) Aged Out N o longer eligible based on patient's age to complete this topic Medical Devices Not on file Insurance [facility] ONE CARE MEDICARE REPLACEMENT JOAQUIM HUDSON [facility] MEDICARE REPLACEMENT MEDICARE REPLACEMENT [address] [place] [address] MEDICARE REPLACEMENT [address] [place] [address] ONE CARE MEDICARE REPLACEMENT CARE MEDICARE REPLACEMENT [address] [place] [address] CARE MEDICARE REPLACEMENT [address] [place] [address] CARE MEDICARE REPLACEMENT [facility] ONE CARE MEDICARE REPLACEMENT Care Teams Soft Water Mechanic Relationship Specialty Start Date End Date Lew Thibodeaux NP [address] [place] [address] PCP - General Family Medicine 10/10/21 Additional Source Comments The information contained in this document represents components of the legal health record. It is not the complete legal health record.[facility]
== END 2024-12-05 15:03 | disposition home or self-care (01) ==
LOC: HO.HMGCLDS 15:02
PROVIDERS: PCP Nurse Practitioner Family; Visit Provider Nurse Practitioner Family
DX: R74.8 Abnormal levels of other serum enzymes (principal)
CPT/HCPCS: 36415; 80053

== ENCOUNTER 2025-01-09 13:03 | Outpatient (AMB) | payer OTHER, SELFPAY ==
--- NOTE | 2025-01-09 13:18 | A.OFFPC_ITS ---
Vital Signs 01/09/25 13:19 Height 5 ft 10.5 in Weight 199 lb BMI 28.1 BP 102/68 Blood Pressure Location Lt brachial Position Sitting Pulse 89 Pulse Oximetry (%) 95 Oxygen Delivery Method Room Air Intake Visit Reasons: 6 months f/up-Jur duty letter Dental Professional Required: No Accompanied by: Self / Same As Patient Allergies varenicline (From CHANTIX) Allergy (Severe, Verified 01/09/25 13:24) hallucinations - severe risperidone (From RISPERDAL) Allergy (Intermediate, Verified 01/09/25 13:24) HALLUCINATIONS Tobacco use date assessed: 01/09/25 Dental Screening Dental Screen Date: 01/09/25 Did you have a dental visit in the last 12 months?: Yes Did you have a dental problem in the last 6 months where you did not have access to dental care?: No Was dental information given to patient?: Patient has dentist HPI 6 months f/-Jur duty letter HPI Details Chief Complaint The patient presents for follow-up of fatty liver and right shoulder pain. History of Present Illness The patient is a 54 year old individual presenting for a follow-up for steatosis of liver. The patient's liver enzymes have decreased following dietary modifications. The patient also reports right upper shoulder discomfort which is associated with overhead movements required for the patient's job. The patient has found that NSAIDs and acetaminophen provide relief. The patient has a colonoscopy scheduled for the near future and will return in May for a full physical exam. pt reporting sleep apnea symptoms. He reports his watch keeps trake and he is not getting into a deep sleep Social History - Diet: The patient has worked on diet m odifications. - Employment: The patient's job involves frequent overhead movements, which are associated with right shoulder pain. Health Maintenance The patient has a colonoscopy scheduled in the near future and will return in May for a full physical examination. Review of Systems - Musculoskeletal: Reports right upper s houlder pain. -denies any abd pain, SOB, n/v, CP Physical Exam General: Cooperative, healthy appearing, comfortable, no acute distress and well developed Orientation: Patient oriented x3 Limitations: No limitations Head: Normal to inspection Ears: Hearing grossly normal bilaterally Nose: Normal external nose present Face and sinus: Normal facial exam Eyes: Appearance normal, both eyes and all related structures Neck: Normal visual inspection and Yes full ROM Respiratory: Normal respiratory effort and able to speak in complete sentences. Clear to auscultation bilaterally Cardiovascular: Regular rate and rhythm. Normal S1 and S2 GI: Normal to inspection. Soft to palpation and nontender Skin: No rashes or lesions noted Neuro: Patient oriented x3 Extremities: Normal to inspection, but patient reports some right upper shoulder pain related to overhead movements at work. Results - Labs: Liver enzymes have decreased. Plan 1. Steatosis Of Liver The patient is following up for steatosis of the liver, and liver enzymes have shown improvement following dietary changes. The patient will continue with di etary modifications and will have a full physical examination in May. 2. Right Shoulder Pain The patient's right shoulder pain is attributed to occupational overhead movements. The plan includes continuing with NSAIDs and acetaminophen as needed for pain relief, incorporating stretches, and trying topical agents such as creams and patches like Biofreeze. Physical therapy and imaging may be considered in the future if symptoms persist. Discussion Notes I explained to the patient that the right shoulder pain is likely related to the job, which involves overhead movements. I advised the patient to continue using NSAIDs and Tylenol, which have been helpful, and to also utilize stretches. The patient will also try topical patches and creams like Biofreeze. We discussed that physical therapy and imaging could be options in the near future if symptoms do not improve. The patient will follow up in May for a comprehensive physical. Patient Instructions - Continue with your diet modifications, as they have helped improve your liver enzyme levels. - For your right shoulder pain, you can continue to use NSAIDs (like ibuprofen) and Tylenol. - It is recommended that you perform str etches for your shoulder. - You may also try ytpv-was-iocdivc patc hes and creams, such as Biofreeze, for your shoulder pain. - Proceed with your scheduled colonoscop y. - Please return in May for a full phys ical examination. [facility] Medical History Serrated polyp of colon Diverticulosis Prediabetes Renal cyst History of COVID-19 Anxiety Elevated cholesterol GERD (gastroesophageal reflux disease) Orchalgia Left inguinal hernia Dyslipidemia Psoriasis Hepatitis C Surgical History Hx of colonoscopy Hx of left inguinal hernia repair History of hydrocelectomy History of liver biopsy Family History Father Hypertension Substance use disorder Mother Diabetes Mental health disorder Brother Substance use disorder Sister Mental health disorder Social History Housing: Apartment Alcohol intake: never Patient Tobacco Use Status: Former Tobacco user Tobacco use type: Cigarette e-Cigarette/Vaping Use: Never Used Second Hand Smoke Exposure: No Substance Use Type: Marijuana service: No Current occupational status: disabled Cognitive needs: No Hearing needs: No Vision needs: No Questionnaire PHQ-9 Over the last 2 weeks, how often have you been bothered by any of the following problems? 1. Little interest or pleasure in doing things: not at all 2. Feeling down, depressed, or hopeless: not at all 3. Trouble falling or staying asleep, or sleeping too much: nearly every day 4. Feeling tired or having little energy: not at all 5. Poor appetite or overeating: not at all 6. Feeling bad about yourself - or that you are a failure or have let yourself or your family down: not at all 7. Trouble concentrating on things, such as reading the newspaper or watching television: not at all 8. Moving or speaking so slowly that other people could have noticed. Or the opposite - being so fidgety or restless that you have been moving around a lot more than usual: not at all 9. Thoughts that you would be better off or of hurting yourself in some way: not at all Total score: 3 Depression Screening Interpretation: Negative Depression Screening Done: Yes 17375 - PHQ-9 Billing: Yes Source: Developed by Drs. Randall Nolen, Chacha Wright, Sabas Covarrubias and colleagues, with an educational esther from [employer]. Thrive Questionnaire Date Thrive assessed: 04/18/24 I am a: Patient What is your living situation today?: I have a steady place to live Within the past 12 months, did the food you bought not last and you didn't have the money to get more?: Sometimes True Within the past 12 months, did you worry whether your food would run out before you got money to buy more?: Sometimes True Do you have trouble paying for medicines?: No Do you have trouble getting transportation to medical appointments?: No Do you have trouble paying your heating and electricity bill?: Yes Do you have trouble taking care of your child, family member or friend?: I choose not to answer this question Do you have trouble with day-to-day activities such as bathing, preparing meals, shopping, managing finances, etc.?: Yes Are you currently unemployed and looking for a job?: No Are you interested in more education?: No Please select the resources that you would like help with: None THRIVE Score: 3 LEXIE-7 AMB Questionnaire LEXIE-7 Date LEXIE - 7 assessed: 01/09/25 Feeling nervous, anxious, or on edge: 0 = Not at all Not being able to stop or control worryin = Not at all Worrying too much about different things: 0 = Not at all Trouble relaxin = Not at all Being so restless that it is hard to sit still: 0 = Not at all Becoming easily annoyed or irritable: 0 = Not at all Feeling afraid as if something awful might happen: 0 = Not at all Total LEXIE-7 score (0-4 normal; 5-9 mild; 10-14 moderate; 15-21 severe): 0 Source: Developed by Drs. Randall Nolen, Chacha Wright, Sabas Covarrubias and colleagues, with an educational esther from [employer]. LEXIE-7 Assessment Billing LEXIE-7 Assessment Tool: LEXIE-7 Assessment 49483 Physical exam (Primary Care) Vital Signs: Last Vital Signs Pulse 89 01/09/25 13:19 BP 102/68 01/09/25 13:19 Pulse Ox 95 01/09/25 13:19 Oxygen Delivery Method Room Air 01/09/25 13:19 BMI result Body Mass Index 28.1 Tobacco/Smoking Status: Tobacco use Status Tobacco use date assessed 01/09/25 01/09/25 13:24 Patient Tobacco Use Status Former Tobacco user 01/09/25 13:21 Tobacco use type Cigarette 01/09/25 13:21 e-Cigarette/Vaping Use Never Used 01/09/25 13:21 PHQ-9: PHQ-9 Score PHQ-9: Total score 3 01/09/25 13:24 Depression Screening Interpretation: Negative Thrive Assessment: Date of Thrive Assessment Date Thrive assessed 04/18/24 01/09/25 13:21 Coding Level of Care Code Est Pt Prev Care 40-64y(56803) Diagnoses Physical exam Z00.00 Screening PSA (prostate specific antigen) Z12.5 Sleep apnea G47.30 Additional Codes LEXIE-7 Assessment Billing - LEXIE-7 Assessment Tool: LEXIE-7 Assessment 87601 ([id number]) PHQ-9 - 58937 - PHQ-9 Billing: Yes ([id number]) Assessment & Plan Assessment & Plan (1) Physical exam: Code(s): Z00.00 - Encounter for general adult medical examination without abnormal findings Category: Medical (2) Screening PSA (prostate specific antigen): Code(s): Z12.5 - Encounter for screening for malignant neoplasm of prostate Category: Medical (3) Sleep apnea: Code(s): G47.30 - Sleep apnea, unspecified Category: Medical Plan . Orders: Orders Lipid Panel Today Z00.00 - Encounter for general adult medical examination without abnormal findings Complete Blood Count Auto Diff Today Z00.00 - Encounter for general adult medical examination without abnormal findings Comprehensive [place]. Panel Fast Today Z00.00 - Encounter for general adult medical examination without abnormal findings TSH reflex Free T4 Today Z00.00 - Encounter for general adult medical examination without abnormal findings UA CC w/rflx Micro + Cult Today Z00.00 - Encounter for general adult medical examination without abnormal findings Prostate Specific Antigen Scr Today Z12.5 - Encounter for screening for malignant neoplasm of prostate Referrals Sleep Medicine Referral G47.30 - Sleep apnea, unspecified
[2025-01-09 13:19] VITALS: BP 102/68; PULSE 89; O2SAT 95; BMI 28.1
--- OUTSIDE RECORDS SUMMARY | 2025-01-09 16:51 | XMS_ITS | Clinical Summary ---
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 Name Role Phone Lew Thibodeaux NP Primary [...] topic Medical Devices Not on file Insurance [facility] ONE CARE MEDICARE REPLACEMENT JOAQUIM HUDSON [facility] MEDICARE REPLACEMENT MEDICARE REPLACEMENT [address] [place] [address] MEDICARE REPLACEMENT [address] [place] [address] ONE CARE MEDICARE REPLACEMENT CARE MEDICARE REPLACEMENT [address] [place] [address] CARE MEDICARE REPLACEMENT [address] [place] [address] CARE MEDICARE REPLACEMENT [facility] ONE CARE MEDICARE REPLACEMENT Care Teams Die Cast Patternmaker Relationship Specialty Start Date End Date Lew Thibodeaux NP [address] [place] [address] PCP - General Family Medicine 10/10/21 Additional Source Comments The information contained in this document represents components of the legal health record. It is not the complete legal health record.[facility]
== END 2025-01-09 14:07 | disposition home or self-care (01) ==
LOC: HO.HMCC 13:04
PROVIDERS: PCP Nurse Practitioner Family; Visit Provider Nurse Practitioner Family
DX: Z00.00 Encounter for general adult medical examination without abnormal findings (principal); Z12.5 Encounter for screening for malignant neoplasm of prostate; G47.30 Sleep apnea, unspecified

== ENCOUNTER → 2025-01-09 13:03 | Outpatient (BNVA) | payer OTHER, SELFPAY | PROVIDERS: PCP Nurse Practitioner Family; Visit Provider Nurse Practitioner Family | DX: Z00.00 Encounter for general adult medical examination without abnormal findings (principal); K76.0 Fatty (change of) liver, not elsewhere classified; M25.511 Pain in right shoulder; G47.30 Sleep apnea, unspecified | CPT/HCPCS: 96127; 99396 ==

== ENCOUNTER 2025-01-16 07:56 | Day surgery (SDC) | payer OTHER, SELFPAY ==
--- OUTSIDE RECORDS SUMMARY | 2024-12-14 07:41 | XMS_ITS | Clinical Summary ---
Author Organization [facility] Address [address] [place] [phone] Phone Care Team Providers Care Certified Ophthalmic Assistant Name Role Phone Lew Thibodeaux NP Primary [...] topic Medical Devices Not on file Insurance [facility] ONE CARE MEDICARE REPLACEMENT JOAQUIM HUDSON [facility] MEDICARE REPLACEMENT MEDICARE REPLACEMENT [address] [place] [address] MEDICARE REPLACEMENT [address] [place] [address] ONE CARE MEDICARE REPLACEMENT CARE MEDICARE REPLACEMENT [address] [place] [address] CARE MEDICARE REPLACEMENT [address] [place] [address] CARE MEDICARE REPLACEMENT [facility] ONE CARE MEDICARE REPLACEMENT Care Teams Certified Ophthalmic Assistant Relationship Specialty Start Date End Date Lew Thibodeaux NP [address] [place] [address] PCP - General Family Medicine 10/10/21 Additional Source Comments The information contained in this document represents components of the legal health record. It is not the complete legal health record.[facility]
[2025-01-16 08:34] VITALS: BMI 27.4
[2025-01-16] MEDS: Lactated Ringers 1,000 ML 100 ML IVCONT (08:47)
[2025-01-16 08:48] VITALS: BP 134/91; PULSE 99; RESP 18; TEMP 36.7; O2SAT 97
--- NOTE | 2025-01-16 08:57 | MHC.SHP ---
Pre-Procedural Eval Section A - 24 Hr Update-Section A only Date of Service: 01/16/25 Section B - Complete if H&P > 30 days Chief Complaint: gerd,screening Relevant Family History (Specify if Yes): No Relevant Social History: None Present Medications: see Short Stay Collaborative assessment Medical History: Significant History (Serrated polyp of colon Diverticulosis Prediabetes Renal cyst History of COVID-19 Anxiety Elevated cholesterol GERD (gastroesophageal reflux disease) Orchalgia Left inguinal hernia Dyslipidemia Psoriasis Hepatitis C) History of Previous Operations: Relevant previous surgery/procedure and date(s) ( Hx of colonoscopy Hx of left inguinal hernia repair History of hydrocelectomy History of liver biopsy) Allergies: Allergies Allergy/AdvReac Type Severity Reaction Status Date / Time varenicline (From CHANTIX) Allergy Severe hallucinations Verified 01/16/25 08:37 - severe risperidone (From RISPERDAL) Allergy Intermediate HALLUCINATI Verified 01/16/25 08:37 ONS Review of Systems Sugical H&P ROS: Negative: Constitution, Cardiovascular, Respiratory, Neurological, Psychiatric, Hem-Onc, Allergic/Immunologic, Gastrointestinal, Genitourinary, Musculoskeletal, Integumentary, Endocrine and Eyes/Ears/Nose/Throat Exam Surgical H&P Exam: Normal: HEENT, Normal: Heart, Normal: Lungs, Normal: Extremities, Normal: Abdomen, Normal: Skin and Normal: Neurological Plan Diagnosis/Plan: Unchanged I have reviewed the history and physical and performed a pertinent physical examination on my patient. No changes have occurred unless specified. Time Spent With Patient Time: Total time managing care of this patient today ____ minutes.
--- NOTE | 2025-01-16 09:10 | HO.ANESPROP2 ---
Documented by User: Brooklynn Stephenson NP 01/10/25 14:01 HPI - Anesthesia Eval Consult details Narrative: 54 yr old male for colonoscopy ?sleep apnea: sleep med referral in [facility] Active Problems Active Problems: All Active Problems (Updated 01/10/25 @ 13:06 by Yoana Mccabe RN) Sleep apnea (Acute) Parenchymal liver disease (Acute) Vitamin D deficiency (Acute) Leukocytosis (Acute) Dermatitis (Acute) Back pain (Acute) Fatty liver (Acute) Screening for colon cancer (Acute) Thyroid nodule (Acute) Screening PSA (prostate specific antigen) (Acute) Cyst of left kidney (Acute) Elevated liver enzymes (Acute) Physical exam (Acute) Hepatitis C (Acute) Serrated polyp of colon (Acute) Diverticulosis (Acute) Dyslipidemia (Acute) Past Medical History Medical History Serrated polyp of colon Diverticulosis Prediabetes Renal cyst Anxiety Elevated cholesterol GERD (gastroesophageal reflux disease) Orchalgia Left inguinal hernia Dyslipidemia Psoriasis Hepatitis C Family History Family History Father Hypertension Substance use disorder Mother Diabetes Mental health disorder Brother Substance use disorder Sister Mental health disorder Family history of problems with anesthesia: No Surgical History Surgical History Hx of colonoscopy Hx of left inguinal hernia repair History of hydrocelectomy History of liver biopsy History of Problems with Anesthesia: No Social History Social History Housing: Apartment Are you a primary memory care program director to a significant other at home: No Do you presently have visiting nurse or other home services: No Alcohol intake: never Patient Tobacco Use Status: Former Tobacco user Tobacco use type: Cigarette e-Cigarette/Vaping Use: Never Used Second Hand Smoke Exposure: No Substance Use Type: Marijuana Substance Use Frequency: Daily Have you been hit, kicked, punched, or otherwise hurt by someone within the past year? If so, by whom?: No Are you DNR?: No Advance Directives: No Advance Directives Information Provided: Yes service: No Current occupational status: disabled Cognitive needs: No Hearing needs: No Vision needs: No Meds Allergies Allergy/AdvReac Type Severity Reaction Status Date / Time varenicline (From CHANTIX) Allergy Severe hallucinations Verified 01/16/25 08:37 - severe risperidone (From RISPERDAL) Allergy Intermediate HALLUCINATI Verified 01/16/25 08:37 ONS Home Medications ?Medication ?Instructions ?Recorded ?Confirmed ?Last Taken ?Type aspirin 81 mg tablet,delayed 81 mg PO DAILY 05/28/21 01/16/25 01/06/25 History release (Adult Aspirin Regimen) calcium 600 mg (as 1 cap PO DAILY 05/28/21 01/16/25 Unknown History carbonate)-vitamin D3 12.5 mcg (500 unit) capsule (Calcium with Vit D3) multivitamin (Daily Multi-Vitamin 1 tab PO DAILY 05/28/21 01/16/25 Unknown History tablet) omega-3 fatty acids 1,000 mg 1,000 mg PO DAILY 05/28/21 01/16/25 01/06/25 History capsule Exam Height,Weight and Vital Signs: Height 5 ft 10.5 in Weight 96.162 kg Assessment and Plan Final Anesthetic Review Family History of Problems with Anesthesia: No History of Problems with Anesthesia: No Documented by User: Ana Gonzales DO 01/16/25 09:11 [facility] Past Medical History Medical History Serrated polyp of colon Diverticulosis Prediabetes Renal cyst Anxiety Elevated cholesterol GERD (gastroesophageal reflux disease) Orchalgia Left inguinal hernia Dyslipidemia Psoriasis Hepatitis C Family History Family History Father Hypertension Substance use disorder Mother Diabetes Mental health disorder Brother Substance use disorder Sister Mental health disorder Family history of problems with anesthesia: No Surgical History Surgical History Hx of colonoscopy Hx of left inguinal hernia repair History of hydrocelectomy History of liver biopsy History of Problems with Anesthesia: No Social History Social History (Reviewed 01/09/25 @ 13:53 by Lew Thibodeaux [facility]) Housing: Apartment Are you a primary memory care program director to a significant other at home: No Do you presently have visiting nurse or other home services: No Alcohol intake: never Patient Tobacco Use Status: Former Tobacco user Tobacco use type: Cigarette e-Cigarette/Vaping Use: Never Used Second Hand Smoke Exposure: No Substance Use Type: Marijuana Substance Use Frequency: Daily Have you been hit, kicked, punched, or otherwise hurt by someone within the past year? If so, by whom?: No Are you DNR?: No Advance Directives: No Advance Directives Information Provided: Yes service: No Current occupational status: disabled Cognitive needs: No Hearing needs: No Vision needs: No Meds Allergies Allergy/AdvReac Type Severity Reaction Status Date / Time varenicline (From CHANTIX) Allergy Severe hallucinations Verified 01/16/25 08:37 - severe risperidone (From RISPERDAL) Allergy Intermediate HALLUCINATI Verified 01/16/25 08:37 ONS Home Medications ?Medication ?Instructions ?Recorded ?Confirmed ?Last Taken ?Type aspirin 81 mg tablet,delayed 81 mg PO DAILY 05/28/21 01/16/25 01/06/25 History release (Adult Aspirin Regimen) calcium 600 mg (as 1 cap PO DAILY 05/28/21 01/16/25 Unknown History carbonate)-vitamin D3 12.5 mcg (500 unit) capsule (Calcium with Vit D3) multivitamin (Daily Multi-Vitamin 1 tab PO DAILY 05/28/21 01/16/25 Unknown History tablet) omega-3 fatty acids 1,000 mg 1,000 mg PO DAILY 05/28/21 01/16/25 01/06/25 History capsule Exam Exam Date and Time: 01/16/25 0910 Height,Weight and Vital Signs: Height 5 ft 10.5 in Weight 96.162 kg Height 5 ft 10.5 in Weight 87.8 kg Vital Signs Temperature 98.0 F 01/16/25 08:48 Pulse Rate 99 01/16/25 08:48 Respiratory Rate 18 01/16/25 08:48 Blood Pressure 134/91 H 01/16/25 08:48 Pulse Oximetry 97 01/16/25 08:48 Oxygen Delivery Method Room Air 01/16/25 08:48 Temperature 98.0 F 01/16/25 08:48 Pulse Rate 99 12/02/25 08:48 Respiratory Rate 18 01/16/25 08:48 Blood Pressure 134/91 H 01/16/25 08:48 Pulse Oximetry 97 01/16/25 08:48 Oxygen Delivery Method Room Air 01/16/25 08:48 Airway Mallampati Class: II TM Dist: >3cm Neck ROM: Limited Loose/Missing/Broken Teeth: Yes (multiple missing and broken teeth) Heart: S1S2 Lungs: CTAB Assessment and Plan Assessment Anesthesia Assessment: Anesthesia Plan Discussed and Chart Reviewed Final Anesthetic Review Family History of Problems with Anesthesia: No History of Problems with Anesthesia: No NPO: Yes ASA Class: II Final Preanesthetic Review: No Changes in Pt Med Stat, Meds/Allgs Chart Reviewed, Consent Obtained/Reviewed and Anes Risks/Benef Reviewed Patient Risk: Low Procedure Risk: Low Anesthetic Plan Anesthetic Plan: MAC: and Agree w/ Assess. and Plan Disposition: Standard PACU
--- NOTE | 2025-01-16 10:30 | HO.OPN-COLON ---
Colonoscopy Operative Note Operative Note Date of Service: 01/16/25 Narrative: Operative Information Procedure Description: EGD, Colonoscopy Indication: GERD, screening-hx of polyps Anesthesia: MAC FLEXIBLE TRANSORAL UPPER GASTROINTESTINAL ENDOSCOPY AND COLONOSCOPY PROCEDURE NOTE UPPER ENDOSCOPY Consent: Indications for the procedure and potential complications of bleeding, perforation, reaction to medications and missed diagnosis were discussed with the patient and informed consent was obtained. Instrument: Olympus GIF H 190 J mid size upper endoscope Monitoring: Vital signs and clinical assessment, continuous EKG monitoring, Pulse oximetry, Carbon Dioxide monitoring and blood pressure monitoring were done throughout the procedure. Procedure: The patient was placed in the left lateral decubitis position and pre-procedure medications were administered and a bite block was placed. The endoscope was inserted into the mouth and advanced under direct vision to the third part of duodenum. A careful inspection was made as the upper endoscope was withdrawn including a retroflexed examination of the proximal stomach; Findings and interventions are described below. Findings: Larynx:normal Esophagus: GE junction at 43 cm, diaphragm hiatus at 43 cm, lax LES, irregular Z line, bx taken to r/o barretts, also from distal and proximal esophagus Stomach: patchy erythema. Biopsies were obtained. Grade 2 flap valve on retroflexed examination of the cardia. Duodenum: mild bulbar duodenitis Intervention: Biopsies as noted above, COLONOSCOPY Instrument: Olympus variable stiffness pediatric scope 190L Colonoscopy Monitoring: Vital signs and clinical assessment, continuous EKG monitoring, Pulse oximetry, Carbon Dioxide monitoring and blood pressure monitoring were done throughout the procedure. Colon withdrawal time was 9 minutes. Procedure: The patient was placed in the left lateral decubitis position and pre-procedure medications were administered. After a digital rectal examination of the ano-rectum, the video colonoscope was inserted into the rectum and advanced through the colon to the cecum/TI. The colonoscope was slowly withdrawn in a retrograde panoramic fashion and the colon mucosa was carefully examined including a retroflexed view of the rectum. Findings and interventions are described below. Procedure Difficulty:moderate Findings: Terminal Ileum-normal Cecum:normal Ascending Colon: normal Transverse Colon -normal Descending Colon:normal Sigmoid Colon: mild diverticulosis Rectum: Retroflexion with small internal hemorrhoids, grade I, 6-8 mm sessile polyp removed with cold snare Anorectum - normal Colon preparation: Lefors Bowel Preparation Scale Right colon; 2 Transverse colon: 2 Left colon; 2 (0 = Unprepared colon segment with mucosa not seen due to solid stool that cannot be cleared. 1 = Portion of mucosa of the colon segment seen, but other areas of the colon segment not well seen due to staining, residual stool and/or opaque liquid. 2 = Minor amount of residual staining, small fragments of stool and/or opaque liquid, but mucosa of colon segment seen well. 3 = Entire mucosa of colon segment seen well with no residual staining, small fragments of stool or opaque liquid) Impression and Post Procedure Diagnosis: Endoscopy Findings: lax LES gastritis possible barretts Colonoscopy Findings: diverticulosis colon polyp x 1 internal hemorrhoids Plan: Await Pathology results Repeat Colonoscopy in 5 years due to prior hx of polyps or earlier if clinically indicated High fiber diet leaflet avoid straining at stool, epsom salts and sitz bath, anusol supps or cream GERD precautions, Above findings were reviewed with the patient and relevant handouts were provided if indicated.
[2025-01-16 10:33] VITALS: BP 96/64; PULSE 100; RESP 4; TEMP 36.4; O2SAT 96
[2025-01-16 10:45] VITALS: BP 117/82; PULSE 100; RESP 16; TEMP 36.4; O2SAT 97
[2025-01-16 11:00] VITALS: BP 124/77; PULSE 75; RESP 16; TEMP 36.4; O2SAT 98
== END 2025-01-16 11:49 | disposition home or self-care (01) ==
PROVIDERS: PCP Nurse Practitioner Family; Visit Provider Internal Medicine Gastroenterology
PROC: (CPT 45385; principal; 2025-01-16 09:40)
DX: Z12.11 Encounter for screening for malignant neoplasm of colon (principal); K21.9 Gastro-esophageal reflux disease without esophagitis; Z86.0101 Personal history of adenomatous and serrated colon polyps; B18.2 Chronic viral hepatitis C; K57.30 Diverticulosis of large intestine without perforation or abscess without bleeding; K64.8 Other hemorrhoids; K63.5 Polyp of colon; K29.70 Gastritis, unspecified, without bleeding
CPT/HCPCS: 45385; 43239; 88305; 88313; 88342; J2003; J2704

== ENCOUNTER → 2025-01-16 07:56 | Outpatient (BNV) | payer OTHER, SELFPAY | PROVIDERS: PCP Nurse Practitioner Family; Visit Provider Internal Medicine Gastroenterology | DX: Z12.11 Encounter for screening for malignant neoplasm of colon (principal); D12.8 Benign neoplasm of rectum; K57.30 Diverticulosis of large intestine without perforation or abscess without bleeding; K64.0 First degree hemorrhoids; K21.9 Gastro-esophageal reflux disease without esophagitis; K22.4 Dyskinesia of esophagus; K29.70 Gastritis, unspecified, without bleeding | CPT/HCPCS: 43239; 45385 ==